=== PATIENT | female | born 1960 | race Hispanic/Latino ===

== ENCOUNTER 2020-10-05 18:25 | Observation (INO) | payer MEDICARE ==
[2020-10-05 19:58] LABS: Basophils # (Auto) 0.1 K/mm3 (0.0-0.1); Basophils % (Auto) 0.7 % (0.0-1.8); Eosinophils # (Auto) 0.2 K/mm3 (0.0-0.4); Eosinophils % (Auto) 3.1 % (0.0-4.3); Lymphocytes # (Auto) 1.2 K/mm3 (1.2-5.4); Mean Corpuscular HGB Conc 30 % (30-34); Mean Corpuscular Volume 75 fl (79-97); Monocytes # (Auto) 0.5 K/mm3 (0.0-0.8); Monocytes % (Auto) 6.4 % (0.0-7.3); Platelet Count 352 K/mm3 (140-440); Red Blood Count 4.52 M/mm3 (3.65-5.03)
[2020-10-05 20:00] LABS: Hemoglobin 10.3 gm/dl (10.1-14.3); Red Cell Distribution Width 24.4 % (13.2-15.2)
[2020-10-05 20:21] LABS: Alanine Aminotransferase 24 units/L (7-56); BUN/Creatinine Ratio 6; Blood Urea Nitrogen 3 mg/dL (7-17); Calcium 8.3 mg/dL (8.4-10.2); Hemolysis Index 2
[2020-10-05] MEDS ORDERED: SODIUM CHLORIDE 0.9% 1000 ML 1,000 ML IV ONE (22:17)
[2020-10-05] MEDS ORDERED: DICYCLOMINE 20 MG/2 ML INJ IM ONE (22:18)
[2020-10-05] MEDS ORDERED: ONDANSETRON 4 MG/2 ML INJ IV ONE (22:19)
--- NOTE | 2020-10-05 22:32 | Emergency Department Report ---
ED N/V/D HPI - General Chief complaint: GI Bleed Stated complaint: BLEEDING Time Seen by Provider: 10/05/20 20:51 Source: patient Mode of arrival: Ambulatory Limitations: No Limitations - History of Present Illness Initial comments: 60-year-old female presents to ED with diarrhea and rectal bleeding. Patient states she has had diarrhea, off and on, since her colonoscopy 2 months ago. Patient reports she had a baseball sized polyp removed. Colonoscopy was performed at [facility]. Patient states she has been taking Imodium and Pepto-Bismol for the diarrhea. Patient states she cycles in between loose watery stools and formed stools. Patient states no stool today, although yesterday she had watery stools. She reports that she has been seeing bright red blood on the toilet paper x1 week, off and on, when she wipes. Patient states her stool has been dark in color, but states she was told that she should expect this because her physician started her on iron pills 1 week ago. Patient denies any nausea or vomiting. She reports some left lower quadrant abdominal pain. MD complaint: diarrhea, abdominal pain Description of Diarrhea: water, blood-streaked Associated Abdominal Pain: Yes Location: LLQ Severity: moderate Quality: cramping Consistency: intermittent Improves with: none Worsens with: none Context: recent surgery/procedure Associated Symptoms: denies: fever/chills, nausea/vomiting - Related Data Home Medications Medication Instructions Recorded Confirmed Last Taken Ferrous Sulfate [Iron 325 MG] 65 mg PO QDAY 10/05/20 10/05/20 Unknown Gabapentin 900 mg PO TID 10/05/20 10/05/20 Unknown Glimepiride [Amaryl] 2 mg PO QDAY 10/05/20 10/05/20 Unknown Loratadine 10 mg PO QDAY 10/05/20 10/05/20 Unknown Allergies Allergy/AdvReac Type Severity Reaction Status Date / Time No Known Allergies Allergy Verified 11/15/15 20:29 ED Review of Systems ROS: Stated complaint: BLEEDING Other details as noted in HPI Comment: All other systems reviewed and negative Constitutional: denies: fever Gastrointestinal: abdominal pain, diarrhea, hematochezia. denies: nausea, vomiting ED Past Medical Hx - Past Medical History Previous Medical History?: Yes Hx Hypertension: Yes Hx Diabetes: Yes Additional medical history: PN, high chol , arthritis - Surgical History Additional Surgical History: hyst, tubal ligation, mass removed from breast, - Social History Smoking Status: Current Every Day Smoker Substance Use Type: Alcohol - Medications Home Medications: Home Medications Medication Instructions Recorded Confirmed Last Taken Type Ferrous Sulfate [Iron 325 MG] 65 mg PO QDAY 10/05/20 10/05/20 Unknown History Gabapentin 900 mg PO TID 10/05/20 10/05/20 Unknown History Glimepiride [Amaryl] 2 mg PO QDAY 10/05/20 10/05/20 Unknown History Loratadine 10 mg PO QDAY 10/05/20 10/05/20 Unknown History ED Physical Exam - General Limitations: No Limitations General appearance: alert, in no apparent distress - Head Head exam: Present: atraumatic, normocephalic - Eye Eye exam: Present: normal appearance - ENT ENT exam: Present: mucous membranes moist - Neck Neck exam: Present: normal inspection - Respiratory Respiratory exam: Present: normal lung sounds bilaterally. Absent: respiratory distress - Cardiovascular Cardiovascular Exam: Present: normal rhythm, tachycardia - GI/Abdominal GI/Abdominal exam: Present: soft, tenderness (LLQ). Absent: distended - Rectal Rectal exam: Present: heme (+) stool, black stool - External exam: Present: other (Skin surrounding anus appears macerated and excoriated) - Extremities Exam Extremities exam: Present: normal inspection - Neurological Exam Neurological exam: Present: alert, oriented X3 - Psychiatric Psychiatric exam: Present: normal affect, normal mood - Skin Skin exam: Present: warm, dry, intact, normal color ED Course Vital Signs 10/05/20 10/05/20 10/05/20 19:33 21:04 21:09 Temperature 98.0 F Pulse Rate 116 H 119 H Respiratory 16 23 18 Rate Blood Pressure 105/76 O2 Sat by Pulse 95 Oximetry 10/05/20 10/05/20 10/05/20 21:15 21:31 21:45 Temperature Pulse Rate 119 H 112 H 116 H Respiratory 20 25 H 21 Rate Blood Pressure 114/70 113/78 101/86 O2 Sat by Pulse 99 95 98 Oximetry 10/05/20 10/05/20 10/05/20 22:01 22:30 22:32 Temperature Pulse Rate 126 H 121 H 124 H Respiratory 24 18 21 Rate Blood Pressure 110/75 114/84 O2 Sat by Pulse 97 98 96 Oximetry 10/05/20 10/05/20 10/05/20 23:11 23:29 23:31 Temperature Pulse Rate 116 H Respiratory 31 H Rate Blood Pressure 114/84 109/66 109/66 O2 Sat by Pulse 96 95 96 Oximetry 10/06/20 10/06/20 00:01 00:31 Temperature Pulse Rate 113 H 111 H Respiratory 21 25 H Rate Blood Pressure 120/70 119/71 O2 Sat by Pulse 95 82 L Oximetry - Consultations Consultation #1: 10/06/20 01:13 GI unable to scope on weekends here at [facility]. Spoke w. GI at [place], Dr Bolivar. Does not feel pt needs to be transferred since Hb 10 and not actively bleeding. States likely won't need emergent scope. Believes tachycardia due to her diarrhea. Spoke w/ Dr Ashton, GI here at [facility]. Recommends trending hemoglobin, tachycardia may be due to diarrhea than bleeding. If patient does begin to have any acute bleeding, recommends CTA as the next step. Also recommends trending hemoglobin. ED Medical Decision Making - Lab Data Result diagrams: 10/05/20 19:47 10/05/20 19:47 - Radiology Data Radiology results: report reviewed, image reviewed - Medical Decision Making 61-year-old female presents to ED with bright red blood per rectum seen on toilet paper while wiping. Patient reports intermittent bright red blood over the last week. Patient also reports diarrhea x2 months since her colonoscopy in July 2020. Patient reported some left lower quadrant pain, so CT abdomen pelvis was done. CT is concerning for possible left ovarian mass, however no GI pathology is seen. Patient is tachycardic, however hemoglobin is normal at 10. Tachycardia likely due to dehydration secondary to her diarrhea. Patient reports dark stool x1 week, however, she recently started taking iron pills. On exam stool is dark in color and guaiac positive. Tachycardia improving fluids. BP stable. Spoke with GI. Patient will likely not need emergent scoping. Patient has no active bleeding at this time. Will admit to hospitalist. If she does begin active bleeding, CTA is recommended. Critical care attestation.: If time is entered above; I have spent that time in minutes in the direct care of this critically ill patient, excluding procedure time. ED Disposition Clinical Impression: Ovarian mass, left, Diarrhea, Rectal bleeding Disposition: DC-09 OP ADMIT IP TO THIS HOSP Is pt being admited?: Yes Condition: Stable Referrals: PRIMARY CARE, [Primary Care Provider] - 3-5 Days Forms: Accompanied Note Time of Disposition: 02:01
[2020-10-05 23:01] LABS: INR 1.06 (0.87-1.13)
[2020-10-05 23:02] LABS: Partial Thromboplastin Time 34.9 Sec. (24.2-36.6)
--- NOTE | 2020-10-05 23:05 | Cat Scan Report ---
CT OF THE ABDOMEN AND PELVIS WITH INTRAVENOUS CONTRAST INDICATION / CLINICAL INFORMATION: LLQ pain. TECHNIQUE: The patient received 100 cc Omnipaque [address] scans at this location are performed using CT dose reduction for ALARA by means of automated exposure control. COMPARISON: None available. FINDINGS: ABDOMEN: There is moderate left pelvocaliectasis with moderately severe left ureterectasis. There is a mildly delayed left nephrogram. The right kidney is normal. There is moderately severe generalized decreased density of the liver parenchyma compared to the sple en without focal lesion. There is a probable tiny calcified stone in the gallbladder. The gallbladder is normal in size without wall thickening or bile duct dilatation. The pancreas, spleen, adrenal gla nds and bowel are normal. No adenopathy is present. There are moderate atherosclerotic calcifications involving aorta without aneurysm. The lung bases are clear. PELVIS: The left ureter is dilated to the level of a complex cystic mass in the left adnexa. The mass measures approximately 10 cm in greatest dimension and contains multiple internal septations. There is a small cystic mass in the right adnexa measuring 2.5 cm. The uterus is not seen. The distal left ureter is normal in caliber. The distal right ureter and urinary bladder are normal. There is a moderate hypogastric ventral hernia containing small bowel without acute complication. The re is no evidence of appendicitis or diverticulitis. A moderate compression fracture involving the L3 vertebral body and a mild compression fracture involving the L1 vertebral body are probably old. IMPRESSION: 1. 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 There is also a small cystic mass in the right adnexa. 2. Left-sided hydronephrosis is related to the cystic mass in the left adnexa. 3. Marked diffuse fatty infiltration of the liver. 4. Moderate hypogastric ventral hernia containing small bowel without acute complication. Signer Name: Garland Charles MD Signed: 10/05/2020 11:01 PM Workstation Name: [id number]
[2020-10-06] MEDS ORDERED: SODIUM CHLORIDE 0.9% 1000 ML 1,000 ML IV ONE (02:09)
[2020-10-06] MEDS ORDERED: DEXTROSE 50% IN WATER (25GM) 50 ML SYRINGE IV PRN (02:13)
[2020-10-06] MEDS ORDERED: ONDANSETRON 4 MG/2 ML INJ IV PRN (02:13)
[2020-10-06] MEDS ORDERED: ALBUTEROL 2.5 MG/3 ML NEBU IH PRN (02:47)
--- NOTE | 2020-10-06 02:52 | History and Physical Report ---
History of Present Illness Date of examination: 10/06/20 Date of admission: 10/06/2020 Chief complaint: bright red blood per rectum, intermittent diarrhea History of present illness: 60-year-old -[place] female with history of anemia, hypertension, diabetes, peripheral neuropathy, COPD, HLD, arthritis, and chronic debility who presents to [facility] ED with complaints of intermittent diarrhea x2 months, intermittent bright red blood per rectum x4 to 5 days. Patient reports intermittent since undergoing colonoscopy 2 months ago at [facility]. She has been taking OTC Imodium and Pepto-Bismol with minimal relief. Describes her stool as formed stools on some days, and loose watery stool on other days. Endorses history of anemia and was started on oral iron supplement approximately 1 week ago. Endorses dark-colored stool since starting iron supplement. However, she complains of bright red blood per rectum intermittently over the past 4 to 5 days. Patient states when she sits on the commode and goes to wipe there is bright red blood on the toilet tissue. Endorses chronic smoker's cough with clear/white sputum production, unintentional weight loss of 60 pounds over the past 6 months, and decreased oral intake and appetite. Additionally patient complains of left upper quadrant 6/10 cramping pain. The pain is intermittent, waxes and wanes, and she has not taken any medication for relief. Denies nausea, fever, chills, generalized weakness, headache, chest pain, palpitations, shortness of breath, PND, orthopnea, hematuria, or recent sick contacts Past History Past Medical History: arthritis, COPD, diabetes, hypertension, hyperlipidemia, other (Peripheral neuropathy, chronic debility, " tremors/shakes") Past Surgical History: hysterectomy, Other (tubal ligation, mass removed from breast) Social history: smoking (Smokes half a pack to a pack daily, social alcohol use), full code, other (Lives with life partner of 16 years). denies: alcohol abuse, prescription drug abuse, IV drug use Family history: hypertension Medications and Allergies Allergies Allergy/AdvReac Type Severity Reaction Status Date / Time No Known Allergies Allergy Verified 11/15/15 20:29 Home Medications Medication Instructions Recorded Confirmed Last Taken Type Ferrous Sulfate [Iron 325 MG] 65 mg PO QDAY 10/05/20 10/05/20 Unknown History Gabapentin 900 mg PO TID 10/05/20 10/05/20 Unknown History Glimepiride [Amaryl] 2 mg PO QDAY 10/05/20 10/05/20 Unknown History Loratadine 10 mg PO QDAY 10/05/20 10/05/20 Unknown History Active Meds: Active Medications Acetaminophen (Acetaminophen 325 Mg Tab) 650 mg PO Q4H PRN PRN Reason: Pain MILD(1-3)/Fever >100.5/RUCKER Dextrose (Dextrose 50% In Water (25gm) 50 Ml Syringe) 0 ml IV Q30MIN PRN; Protocol PRN Reason: Hypoglycemia Sodium Chloride (Nacl 0.9% 1000 Ml) 1,000 mls @ 999 mls/hr IV BOLUS ONE Stop: 10/06/20 03:09 Dextrose/Sodium Chloride (D5/0.45ns) 1,000 mls @ 100 mls/hr IV DIRECT MIRIAM Insulin Human Lispro (Insulin Lispro 100 Unit/Ml) 0 unit SUB-Q ACHS MIRIAM; Protocol Ondansetron HCl (Ondansetron 4 Mg/2 Ml Inj) 4 mg IV Q6H PRN PRN Reason: Nausea And Vomiting Oxycodone/Acetaminophen (Oxycodone /Acetaminophen 5-325mg Tab) 1 tab PO Q6H PRN PRN Reason: Pain, Moderate (4-6) Pantoprazole Sodium (Pantoprazole 40 Mg Inj) 40 mg IV BID MIRIAM Sodium Chloride (Sodium Chloride 0.9% 10 Ml Flush Syringe) 10 ml IV BID MIRIAM Sodium Chloride (Sodium Chloride 0.9% 10 Ml Flush Syringe) 10 ml IV PRN PRN PRN Reason: LINE FLUSH Review of Systems All systems: negative (As noted in HPI) Exam - Physical Exam Narrative exam: Physical exam General appearance: Present: No acute distress, alert and oriented 3, adult female - EENT Eyes: Present: PERRL, EOM intact ENT: hearing intact, missing tubes - Neck Neck: Present: supple, normal ROM - Respiratory Respiratory effort: Non-labored Respiratory: Faint scattered crackles, diminished bases - Cardiovascular Heart rate: 119 (bpm) Rhythm: Sinus tachycardia Heart Sounds: Present: S1 & S2. Absent: rub, click - Extremities Extremities: no ischemia, pulses intact, - Peripheral Assessment Peripheral Pulses: within normal limits - Abdominal General gastrointestinal: soft, tenderness to the left lower quadrant, normal bowel sounds - Integumentary Integumentary: Present: warm, dry - Musculoskeletal Musculoskeletal: Able to move all extremities, chronic bilateral lower extremity weakness ambulates with cane at baseline -Neurological Neurological: CN II-XII intact - Psychiatric Psychiatric: cooperative - Constitutional Vitals: Temp Pulse Resp BP Pulse Ox 98.0 F 111 H 25 H 119/71 82 L 10/05/20 19:33 10/06/20 00:31 10/06/20 00:31 10/06/20 00:31 10/06/20 00:31 Results - Labs CBC & Chem 7: 10/05/20 19:47 10/05/20 19:47 Labs: Laboratory Last Values WBC 7.8 K/mm3 (4.5-11.0) 10/05/20 19:47 RBC 4.52 M/mm3 (3.65-5.03) 10/05/20 19:47 Hgb 10.3 gm/dl (10.1-14.3) 10/05/20 19:47 Hct 34.0 % (30.3-42.9) 10/05/20 19:47 MCV 75 fl (79-97) L 10/05/20 19:47 MCH 23 pg (28-32) L 10/05/20 19:47 MCHC 30 % (30-34) 10/05/20 19:47 RDW 24.4 % (13.2-15.2) H 10/05/20 19:47 Plt Count 352 K/mm3 (140-440) 10/05/20 19:47 Lymph % (Auto) 16.0 % (13.4-35.0) 10/05/20 19:47 [place] % (Auto) 6.4 % (0.0-7.3) 10/05/20 19:47 Eos % (Auto) 3.1 % (0.0-4.3) 10/05/20 19:47 Baso % (Auto) 0.7 % (0.0-1.8) 10/05/20 19:47 Lymph # (Auto) 1.2 K/mm3 (1.2-5.4) 10/05/20 19:47 [place] # (Auto) 0.5 K/mm3 (0.0-0.8) 10/05/20 19:47 Eos # (Auto) 0.2 K/mm3 (0.0-0.4) 10/05/20 19:47 Baso # (Auto) 0.1 K/mm3 (0.0-0.1) 10/05/20 19:47 Seg Neutrophils % 73.8 % (40.0-70.0) H 10/05/20 19:47 Seg Neutrophils # 5.7 K/mm3 (1.8-7.7) 10/05/20 19:47 PT 13.7 Sec. (12.2-14.9) 10/05/20 22:27 INR 1.06 (0.87-1.13) 10/05/20 22:27 APTT 34.9 Sec. (24.2-36.6) 10/05/20 22:27 Sodium 133 mmol/L (137-145) L 10/05/20 19:47 Potassium 4.0 mmol/L (3.6-5.0) 10/05/20 19:47 Chloride 94.9 mmol/L (98-107) L 10/05/20 19:47 Carbon Dioxide 23 mmol/L (22-30) 10/05/20 19:47 Anion Gap 19 mmol/L 10/05/20 19:47 BUN 3 mg/dL (7-17) L 10/05/20 19:47 Creatinine 0.5 mg/dL (0.6-1.2) L 10/05/20 19:47 Estimated GFR > 60 ml/min 10/05/20 19:47 BUN/Creatinine Ratio 6 % 10/05/20 19:47 Glucose 77 mg/dL (65-100) 10/05/20 19:47 Hemoglobin A1c 5.0 % (4-6) 10/06/20 Unknown Calcium 8.3 mg/dL (8.4-10.2) L 10/05/20 19:47 Total Bilirubin 0.30 mg/dL (0.1-1.2) 10/05/20 19:47 AST 59 units/L (5-40) H 10/05/20 19:47 ALT 24 units/L (7-56) 10/05/20 19:47 Alkaline Phosphatase 176 units/L (35-129) H 10/05/20 19:47 Total Protein 7.6 g/dL (6.3-8.2) 10/05/20 19:47 Albumin 3.0 g/dL (3.9-5) L 10/05/20 19:47 Albumin/Globulin Ratio 0.7 % 10/05/20 19:47 - Diagnostic Impressions Diagnostic Impressions: CT Abd/Pelvis: FINDINGS: ABDOMEN: There is moderate left pelvocaliectasis with moderately severe left ureterectasis. There is a mildly delayed left nephrogram. The right kidney is normal. There is moderately severe generalized decreased density of the liver parenchyma compared to the spleen without focal lesion. There is a probable tiny calcified stone in the gallbladder. The gallbladder is normal in size without wall thickening or bile duct dilatation. The pancreas, spleen, adrenal glands and bowel are normal. No adenopathy is present. There are modera te atherosclerotic calcifications involving aorta without aneurysm. The lung bases are clear. PELVIS: The left ureter is dilated to the level of a complex cystic mass in the left adnexa. The mass measures approximately 10 cm in greatest dimension and contains multiple internal septations. There is a small cystic mass in the right adnexa measuring 2.5 cm. The uterus is not seen. The distal left ureter is normal in caliber. The distal right ureter and urinary bladder are normal. There is a moderate hypogastric ventral hernia containing small bowel without acute complication. There is no evidence of appendicitis or diverticulitis. A moderate compression fracture involving the L3 vertebral body and a mild compression fracture involving the L1 vertebral body are probably old. IMPRESSION: 1. 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 There is also a small cystic mass in the right adnexa. 2. Left-sided hydronephrosis is related to the cystic mass in the left adnexa. 3. Marked diffuse fatty infiltration of the liver. 4. Moderate hypogastric ventr al hernia containing small bowel without acute complication. Assessment and Plan Assessment and plan: Tachycardia -Likely due to dehydration -On continuous remote telemetry monitoring -Receiving IVF -Monitor, if no improvement after fluid resuscitation may consider cardiology consult GI bleed -Complains of intermittent bright red blood per rectum x4 to 5 days -Guaiac positive -On IV Protonix 40 mg twice daily -Unable to scope over the weekend, GI consulted, recs appreciated Dehydration -BUN/creatinine 3/0.5 -Likely due to poor oral intake -Gentle hydration with IVF -Monitor -Encourage oral intake Hyponatremia -Na on admission 133 -Slowly correct Na with IVF -Continue to monitor replete prn Anemia -Acute on chronic -High suspicion for GI bleed, stool guaiac positive -On oral iron supplements at home, will continue -Trend H&H -Transfuse for Hgb less than 7 or significant blood loss per rectum Malnutrition -Severe -Albumin 3.0 -Endorses unintentional 60 pound weight loss over the past 6 months, and decreased appetite -Dietitian consult pending Cystic mass -10 cm complex cystic mass in the left adnexa is characteristic of ovarian neoplasm; also a small cystic mass in the right adnexa -Incidental finding seen on CT abdomen pelvis -We will try outpatient follow-up with CREDIT COLLECTIONS CLERK and possibly oncology DM -POC BG monitoring -SSI coverage prn -HgbA1C pending Tobacco abuse -Current every day smoker -Reports smoking half a pack to 1 pack/day -Counseled for cessation -Nicotine patch when necessary -Patient's smoking history and age may benefit from outpatient follow-up with pulmonary for low-density lung scan DVand GI PPX -Hold all anticoagulation due to high suspicion of active bleeding -On IV Protonix twice daily Advance Directives: No VTE prophylaxis?: Mechanical Reason for no VTE Prophylaxis: Bleeding Plan of care discussed with patient/family: Yes
[2020-10-06] MEDS ORDERED: NICOTINE 14 MG/24 HR PATCH TD ONE (03:07)
[2020-10-06 03:15] LABS: Chol/HDL Ratio 4.08 %
[2020-10-06] MEDS: guaiFENesin ER 600 MG TAB PO SCH ×3 (03:58→21:12)
[2020-10-06] MEDS: D5W/0.45% NACL 1,000 ML IV SCH ×2 (04:47→20:04)
[2020-10-06 06:39] LABS: Hematocrit 31.6 % (30.3-42.9); Hemoglobin 9.2 gm/dl (10.1-14.3)
--- NOTE | 2020-10-06 09:06 | Progress Note ---
Assessment and Plan Assessment and plan: GI bleed Hyponatremia Acute blood loss anemia Severe protein calorie malnutrition Ovarian cystic mass Diabetes mellitus type 2 Tobacco abuse 10/06. Continue IV fluid hydration and follow-up BMP. Transfuse for hemoglobin less than 7. Follow-up CBC. Continue IV Protonix twice daily. Await GI co nsultation. History Interval history: No new issues overnight Hospitalist Physical - Constitutional Vitals: Temp Pulse Resp BP Pulse Ox 98.4 F 91 H 18 102/69 96 10/06/20 08:09 10/06/20 08:09 10/06/20 04:21 10/06/20 08:10 10/06/20 07:37 General appearance: Present: no acute distress, well-nourished - EENT Eyes: Present: PERRL, EOM intact ENT: hearing intact, clear oral mucosa, dentition normal - Neck Neck: Present: supple, normal ROM - Respiratory Respiratory effort: normal Respiratory: bilateral: CTA - Cardiovascular Rhythm: regular Heart Sounds: Present: S1 & S2. Absent: gallop, rub - Extremities Extremities: no ischemia, No edema, Full ROM - Abdominal General gastrointestinal: soft, non-tender, non-distended, normal bowel sounds - Integumentary Integumentary: Present: clear, warm, dry - Neurologic Neurologic: CNII-XII intact, moves all extremities Results - Labs CBC & Chem 7: 10/06/20 05:32 10/05/20 19:47 Labs: Laboratory Last Values WBC 7.8 K/mm3 (4.5-11.0) 10/05/20 19:47 RBC 4.52 M/mm3 (3.65-5.03) 10/05/20 19:47 Hgb 9.2 gm/dl (10.1-14.3) L 10/06/20 05:32 Hct 31.6 % (30.3-42.9) 10/06/20 05:32 MCV 75 fl (79-97) L 10/05/20 19:47 MCH 23 pg (28-32) L 10/05/20 19:47 MCHC 30 % (30-34) 10/05/20 19:47 RDW 24.4 % (13.2-15.2) H 10/05/20 19:47 Plt Count 352 K/mm3 (140-440) 10/05/20 19:47 Lymph % (Auto) 16.0 % (13.4-35.0) 10/05/20 19:47 [place] % (Auto) 6.4 % (0.0-7.3) 10/05/20 19:47 Eos % (Auto) 3.1 % (0.0-4.3) 10/05/20 19:47 Baso % (Auto) 0.7 % (0.0-1.8) 10/05/20 19:47 Lymph # (Auto) 1.2 K/mm3 (1.2-5.4) 10/05/20 19:47 [place] # (Auto) 0.5 K/mm3 (0.0-0.8) 10/05/20 19:47 Eos # (Auto) 0.2 K/mm3 (0.0-0.4) 10/05/20 19:47 Baso # (Auto) 0.1 K/mm3 (0.0-0.1) 10/05/20 19:47 Seg Neutrophils % 73.8 % (40.0-70.0) H 10/05/20 19:47 Seg Neutrophils # 5.7 K/mm3 (1.8-7.7) 10/05/20 19:47 PT 13.7 Sec. (12.2-14.9) 10/05/20 22:27 INR 1.06 (0.87-1.13) 10/05/20 22:27 APTT 34.9 Sec. (24.2-36.6) 10/05/20 22:27 Sodium 133 mmol/L (137-145) L 10/05/20 19:47 Potassium 4.0 mmol/L (3.6-5.0) 10/05/20 19:47 Chloride 94.9 mmol/L (98-107) L 10/05/20 19:47 Carbon Dioxide 23 mmol/L (22-30) 10/05/20 19:47 Anion Gap 19 mmol/L 10/05/20 19:47 BUN 3 mg/dL (7-17) L 10/05/20 19:47 Creatinine 0.5 mg/dL (0.6-1.2) L 10/05/20 19:47 Estimated GFR > 60 ml/min 10/05/20 19:47 BUN/Creatinine Ratio 6 % 10/05/20 19:47 Glucose 77 mg/dL (65-100) 10/05/20 19:47 Hemoglobin A1c 5.0 % (4-6) 10/06/20 Unknown Calcium 8.3 mg/dL (8.4-10.2) L 10/05/20 19:47 Total Bilirubin 0.30 mg/dL (0.1-1.2) 10/05/20 19:47 AST 59 units/L (5-40) H 10/05/20 19:47 ALT 24 units/L (7-56) 10/05/20 19:47 Alkaline Phosphatase 176 units/L (35-129) H 10/05/20 19:47 Total Protein 7.6 g/dL (6.3-8.2) 10/05/20 19:47 Albumin 3.0 g/dL (3.9-5) L 10/05/20 19:47 Albumin/Globulin Ratio 0.7 % 10/05/20 19:47 Triglycerides 215 mg/dL (2-149) H 10/06/20 Unknown Cholesterol 192 mg/dL (50-199) 10/06/20 Unknown LDL Cholesterol Direct 130 mg/dL (50-130) 10/06/20 Unknown HDL Cholesterol 47 mg/dL (40-59) 10/06/20 Unknown Cholesterol/HDL Ratio 4.08 % 10/06/20 Unknown Sal/IV: Voiding Method Bedside Commode Active Medications - Current Medications Current Medications: Generic Name Dose Route Start Last Admin Trade Name Freq PRN Reason Stop Dose Admin Acetaminophen 650 mg 10/06/20 02:13 Acetaminophen 325 Mg Tab PO Q4H PRN Pain MILD(1-3)/Fever >100.5/RUCKER Albuterol 2.5 mg 10/06/20 02:47 Albuterol 2.5 Mg/3 Ml Nebu IH Q4HRT PRN Shortness Of Breath/ cough Dextrose 0 ml 10/06/20 02:13 Dextrose 50% In Water (25gm) 50 Ml Syringe IV Q30MIN PRN Hypoglycemia Protocol Ferrous Sulfate 325 mg 10/06/20 10:00 Ferrous Sulfate 325 Mg Tab PO QDAY MIRIAM Gabapentin 900 mg 10/06/20 08:00 Gabapentin 300 Mg Cap PO TID [facility] Guaifenesin 600 mg 10/06/20 03:02 10/06/20 03:58 Guaifenesin Er 600 Mg Tab PO 600 mg BID MIRIAM Administration Dextrose/Sodium Chloride 1,000 mls @ 100 mls/hr 10/06/20 03:00 10/06/20 04:47 D5/0.45ns IV 100 mls/hr DIRECT MIRIAM Administration Insulin Human Lispro 0 unit 10/06/20 07:30 Insulin Lispro 100 Unit/Ml SUB-Q ACHS MIRIAM Protocol Nicotine 14 mg 10/06/20 10:00 Nicotine 14 Mg/24 Hr Patch TD QDAY MIRIAM Ondansetron HCl 4 mg 10/06/20 02:13 Ondansetron 4 Mg/2 Ml Inj IV Q6H PRN Nausea And Vomiting Oxycodone/Acetaminophen 1 tab 10/06/20 02:13 Oxycodone /Acetaminophen 5-325mg Tab PO Q6H PRN Pain, Moderate (4-6) Pantoprazole Sodium 40 mg 10/06/20 10:00 Pantoprazole 40 Mg Inj IV BID MIRIAM Sodium Chloride 10 ml 10/06/20 10:00 Sodium Chloride 0.9% 10 Ml Flush Syringe IV BID MIRIAM Sodium Chloride 10 ml 10/06/20 02:13 Sodium Chloride 0.9% 10 Ml Flush Syringe IV PRN PRN LINE FLUSH
[2020-10-06] MEDS: FERROUS SULFATE 325 MG TAB PO SCH (10:26)
[2020-10-06] MEDS: GABAPENTIN 300 MG CAP PO SCH ×3 (10:26→21:12)
[2020-10-06] MEDS: INSULIN LISPRO 100 UNIT/ML SUB-Q SCH ×4 (10:27→21:13)
[2020-10-06] MEDS: NICOTINE 14 MG/24 HR PATCH TD SCH (10:27)
[2020-10-06] MEDS: PANTOPRAZOLE 40 MG INJ IV SCH ×2 (10:27→21:11)
[2020-10-06] MEDS: ACETAMINOPHEN 325 MG TAB PO PRN ×3 (10:31→21:12)
[2020-10-06 14:37] LABS: Hematocrit 29.5 % (30.3-42.9); Hemoglobin 9.1 gm/dl (10.1-14.3)
--- NOTE | 2020-10-06 15:29 | Gastroenterology Consultation ---
History of Present Illness - Reason for Consult Consult date: 10/06/20 hematochezia Requesting physician: ROMANA SOSA - History of Present Illness The patient is a 60 yo aaf who presents with abd pain, diarrhea, and hematochezia. Patient reports having colonoscopy 2 months ago at [facility] with large polyp removed. Since that time, she has had on going diarrhea episodes alternating with hard stools/constipation and has noticed scant hematochezia particularly with straining. + abd pain, llq for several weeks. pt distressed about having another loose bm at the time of exam and difficult to obtain detailed history from patient. non-bloody bm's per pt's nurse. had some scant blood with wipes. ct scan on admission shows 10 cm complex cystic mass in left adenexa concerning for ovarian neoplasm. Past History Past Medical History: arthritis, COPD, diabetes, hypertension, hyperlipidemia, other (Peripheral neuropathy, chronic debility, " tremors/shakes") Past Surgical History: hysterectomy, Other (tubal ligation, mass removed from breast) Social history: smoking (Smokes half a pack to a pack daily, social alcohol use), full code, other (Lives with life partner of 16 years). denies: alcohol abuse, prescription drug abuse, IV drug use Family history: hypertension Medications and Allergies Allergies Allergy/AdvReac Type Severity Reaction Status Date / Time No Known Allergies Allergy Verified 11/15/15 20:29 Home Medications Medication Instructions Recorded Confirmed Last Taken Type Ferrous Sulfate [Iron 325 MG] 65 mg PO QDAY 10/05/20 10/05/20 Unknown History Gabapentin 900 mg PO TID 10/05/20 10/05/20 Unknown History Glimepiride [Amaryl] 2 mg PO QDAY 10/05/20 10/05/20 Unknown History Loratadine 10 mg PO QDAY 10/05/20 10/05/20 Unknown History Active Meds: Active Medications Acetaminophen (Acetaminophen 325 Mg Tab) 650 mg PO Q4H PRN PRN Reason: Pain MILD(1-3)/Fever >100.5/RUCKER Last Admin: 10/06/20 14:23 Dose: 650 mg Documented by: Albuterol (Albuterol 2.5 Mg/3 Ml Nebu) 2.5 mg IH Q4HRT PRN PRN Reason: Shortness Of Breath/ cough Dextrose (Dextrose 50% In Water (25gm) 50 Ml Syringe) 0 ml IV Q30MIN PRN; Protocol PRN Reason: Hypoglycemia Ferrous Sulfate (Ferrous Sulfate 325 Mg Tab) 325 mg PO QDAY [facility] Last Admin: 10/06/20 10:26 Dose: 325 mg Documented by: Gabapentin (Gabapentin 300 Mg Cap) 900 mg PO TID [facility] Last Admin: 10/06/20 14:21 Dose: 900 mg Documented by: Guaifenesin (Guaifenesin Er 600 Mg Tab) 600 mg PO BID [facility] Last Admin: 10/06/20 10:26 Dose: 600 mg Documented by: Dextrose/Sodium Chloride (D5/0.45ns) 1,000 mls @ 100 mls/hr IV DIRECT [facility] Last Admin: 10/06/20 04:47 Dose: 100 mls/hr Documented by: Insulin Human Lispro (Insulin Lispro 100 Unit/Ml) 0 unit SUB-Q ACHS [facility]; Protocol Last Admin: 10/06/20 11:16 Dose: Not Given Documented by: Nicotine (Nicotine 14 Mg/24 Hr Patch) 14 mg TD QDAY [facility] Last Admin: 10/06/20 10:27 Dose: 14 mg Documented by: Ondansetron HCl (Ondansetron 4 Mg/2 Ml Inj) 4 mg IV Q6H PRN PRN Reason: Nausea And Vomiting Oxycodone/Acetaminophen (Oxycodone /Acetaminophen 5-325mg Tab) 1 tab PO Q6H PRN PRN Reason: Pain, Moderate (4-6) Pantoprazole Sodium (Pantoprazole 40 Mg Inj) 40 mg IV BID [facility] Last Admin: 10/06/20 10:27 Dose: 40 mg Documented by: Sodium Chloride (Sodium Chloride 0.9% 10 Ml Flush Syringe) 10 ml IV BID [facility] Last Admin: 10/06/20 10:27 Dose: 10 ml Documented by: Sodium Chloride (Sodium Chloride 0.9% 10 Ml Flush Syringe) 10 ml IV PRN PRN PRN Reason: LINE FLUSH Reviewed/updated patients home and current medications Review of Systems - Review of Systems All systems: negative (per HPI, poor po intake with episodes of n/v, weight loss) Exam - Constitutional Vital Signs: Temp Pulse Resp BP Pulse Ox 98.4 F 95 H 18 102/69 96 10/06/20 08:09 10/06/20 11:00 10/06/20 04:21 10/06/20 08:10 10/06/20 07:37 General appearance: mild distress - EENT Eyes: PERRL, EOM intact - Respiratory Respiratory effort: normal Respiratory: bilateral: CTA - Cardiovascular Rhythm: regular Heart Sounds: Present: S1 & S2 - Gastrointestinal General gastrointestinal: Present: soft, tender (llq), non-distended - Neurologic Neurological: alert and oriented x3 - Labs CBC & Chem 7: 10/06/20 14:22 10/05/20 19:47 Lab Results: Laboratory Results - last 24 hr 10/05/20 10/05/20 10/05/20 19:47 19:47 22:27 WBC 7.8 RBC 4.52 Hgb 10.3 Hct 34.0 MCV 75 L MCH 23 L MCHC 30 RDW 24.4 H Plt Count 352 Lymph % (Auto) 16.0 [place] % (Auto) 6.4 Eos % (Auto) 3.1 Baso % (Auto) 0.7 Lymph # (Auto) 1.2 [place] # (Auto) 0.5 Eos # (Auto) 0.2 Baso # (Auto) 0.1 Seg Neutrophils % 73.8 H Seg Neutrophils # 5.7 PT 13.7 INR 1.06 APTT 34.9 Sodium 133 L Potassium 4.0 Chloride 94.9 L Carbon Dioxide 23 Anion Gap 19 BUN 3 L Creatinine 0.5 L Estimated GFR > 60 BUN/Creatinine Ratio 6 Glucose 77 POC Glucose Hemoglobin A1c Calcium 8.3 L Total Bilirubin 0.30 AST 59 H ALT 24 Alkaline Phosphatase 176 H Total Protein 7.6 Albumin 3.0 L Albumin/Globulin Ratio 0.7 Triglycerides Cholesterol LDL Cholesterol Direct HDL Cholesterol Cholesterol/HDL Ratio 10/06/20 10/06/20 10/06/20 05:32 07:41 11:11 WBC RBC Hgb 9.2 L Hct 31.6 MCV MCH MCHC RDW Plt Count Lymph % (Auto) [place] % (Auto) Eos % (Auto) Baso % (Auto) Lymph # (Auto) [place] # (Auto) Eos # (Auto) Baso # (Auto) Seg Neutrophils % Seg Neutrophils # PT INR APTT Sodium Potassium Chloride Carbon Dioxide Anion Gap BUN Creatinine Estimated GFR BUN/Creatinine Ratio Glucose POC Glucose 67 L 92 Hemoglobin A1c Calcium Total Bilirubin AST ALT Alkaline Phosphatase Total Protein Albumin Albumin/Globulin Ratio Triglycerides Cholesterol LDL Cholesterol Direct HDL Cholesterol Cholesterol/HDL Ratio 10/06/20 10/06/20 10/06/20 14:22 Unknown Unknown WBC RBC Hgb 9.1 L Hct 29.5 L MCV MCH MCHC RDW Plt Count Lymph % (Auto) [place] % (Auto) Eos % (Auto) Baso % (Auto) Lymph # (Auto) [place] # (Auto) Eos # (Auto) Baso # (Auto) Seg Neutrophils % Seg Neutrophils # PT INR APTT Sodium Potassium Chloride Carbon Dioxide Anion Gap BUN Creatinine Estimated GFR BUN/Creatinine Ratio Glucose POC Glucose Hemoglobin A1c 5.0 Calcium Total Bilirubin AST ALT Alkaline Phosphatase Total Protein Albumin Albumin/Globulin Ratio Triglycerides 215 H Cholesterol 192 LDL Cholesterol Direct 130 HDL Cholesterol 47 Cholesterol/HDL Ratio 4.08 - Imaging CT Scan: report reviewed Assessment and Plan 1. hematochezia - intermittent episodes since colonoscopy per pt, particularly with straining suggestive of ano-rectal/outlet source. H/h stable and no bloody diarrhea since admission. reports recent colonoscopy at [facility] with large polyp removed but unable to provide further details regarding this or other findings from colonoscopy. will manage conservatively from gi stand point 2. Diarrhea - since colonoscopy per pt. multiple episodes today. r/o c diff 3. LLQ abd pain - ct with left adnexa mass concerning for ovarian neoplasm. recommend employment adjudicator consult
[2020-10-06 22:47] LABS: Hematocrit 29.4 % (30.3-42.9); Hemoglobin 8.9 gm/dl (10.1-14.3)
[2020-10-07] MEDS ORDERED: diphenhydrAMINE 50 MG/ML VIAL IV PRN (01:48)
[2020-10-07] MEDS: D5W/0.45% NACL 1,000 ML IV SCH ×2 (04:33→17:22)
[2020-10-07 04:51] LABS: Basophils % (Auto) 0.4 % (0.0-1.8); Eosinophils # (Auto) 0.2 K/mm3 (0.0-0.4); Lymphocytes # (Auto) 1.4 K/mm3 (1.2-5.4); Lymphocytes % (Auto) 15.8 % (13.4-35.0); Mean Corpuscular HGB Conc 29 % (30-34); Mean Corpuscular Volume 77 fl (79-97); Monocytes # (Auto) 0.8 K/mm3 (0.0-0.8); Monocytes % (Auto) 9.5 % (0.0-7.3); Platelet Count 278 K/mm3 (140-440); Red Blood Count 3.81 M/mm3 (3.65-5.03)
[2020-10-07 05:01] LABS: Hematocrit 29.5 % (30.3-42.9); Hemoglobin 8.5 gm/dl (10.1-14.3); Red Cell Distribution Width 24.3 % (13.2-15.2)
[2020-10-07 05:05] LABS: BUN/Creatinine Ratio 12; Blood Urea Nitrogen 7 mg/dL (7-17); Calcium 8.3 mg/dL (8.4-10.2); Hemolysis Index 6
[2020-10-07] MEDS ORDERED: HYDROCORTISONE 2.5% Topical CREAM 20 GM TP PRN (05:17)
--- NOTE | 2020-10-07 08:38 | Progress Note ---
Assessment and Plan Assessment and plan: GI bleed Hyponatremia Acute blood loss anemia Severe protein calorie malnutrition Ovarian cystic mass Diabetes mellitus type 2 Tobacco abuse 10/06. Continue IV fluid hydration and follow-up BMP. Transfuse for hemoglobin less than 7. Follow-up CBC. Continue IV Protonix twice daily. Await GI co nsultation. 10/07. GI plans to treat conservatively. Check C. Diff for evaluation of diarrhea. H&H is stable. Transfuse for hemoglobin less than 7. Continue Protonix. EXPENSE ANALYST consult for ovarian mass. History Interval history: No new issues overnight Hospitalist Physical - Constitutional Vitals: Temp Pulse Resp BP Pulse Ox 98.2 F 87 16 101/54 94 10/07/20 03:53 10/07/20 03:53 10/07/20 03:53 10/07/20 03:53 10/07/20 03:53 General appearance: Present: no acute distress, well-nourished - EENT Eyes: Present: PERRL, EOM intact ENT: hearing intact, clear oral mucosa, dentition normal - Neck Neck: Present: supple, normal ROM - Respiratory Respiratory effort: normal Respiratory: bilateral: CTA - Cardiovascular Rhythm: regular Heart Sounds: Present: S1 & S2. Absent: gallop, rub - Extremities Extremities: no ischemia, No edema, Full ROM - Abdominal General gastrointestinal: soft, non-tender, non-distended, normal bowel sounds - Integumentary Integumentary: Present: clear, warm, dry - Neurologic Neurologic: CNII-XII intact, moves all extremities Results - Labs CBC & Chem 7: 10/07/20 03:58 10/07/20 03:58 Labs: Laboratory Last Values WBC 8.8 K/mm3 (4.5-11.0) 10/07/20 03:58 RBC 3.81 M/mm3 (3.65-5.03) 10/07/20 03:58 Hgb 8.5 gm/dl (10.1-14.3) L 10/07/20 03:58 Hct 29.5 % (30.3-42.9) L 10/07/20 03:58 MCV 77 fl (79-97) L 10/07/20 03:58 MCH 22 pg (28-32) L 10/07/20 03:58 MCHC 29 % (30-34) L 10/07/20 03:58 RDW 24.3 % (13.2-15.2) H 10/07/20 03:58 Plt Count 278 K/mm3 (140-440) 10/07/20 03:58 Lymph % (Auto) 15.8 % (13.4-35.0) 10/07/20 03:58 [place] % (Auto) 9.5 % (0.0-7.3) H 10/07/20 03:58 Eos % (Auto) 2.0 % (0.0-4.3) 10/07/20 03:58 Baso % (Auto) 0.4 % (0.0-1.8) 10/07/20 03:58 Lymph # (Auto) 1.4 K/mm3 (1.2-5.4) 10/07/20 03:58 [place] # (Auto) 0.8 K/mm3 (0.0-0.8) 10/07/20 03:58 Eos # (Auto) 0.2 K/mm3 (0.0-0.4) 10/07/20 03:58 Baso # (Auto) 0.0 K/mm3 (0.0-0.1) 10/07/20 03:58 Seg Neutrophils % 72.3 % (40.0-70.0) H 10/07/20 03:58 Seg Neutrophils # 6.4 K/mm3 (1.8-7.7) 10/07/20 03:58 PT 13.7 Sec. (12.2-14.9) 10/05/20 22:27 INR 1.06 (0.87-1.13) 10/05/20 22:27 APTT 34.9 Sec. (24.2-36.6) 10/05/20 22:27 Sodium 136 mmol/L (137-145) L 10/07/20 03:58 Potassium 3.8 mmol/L (3.6-5.0) 10/07/20 03:58 Chloride 96.4 mmol/L (98-107) L 10/07/20 03:58 Carbon Dioxide 27 mmol/L (22-30) 10/07/20 03:58 Anion Gap 16 mmol/L 10/07/20 03:58 BUN 7 mg/dL (7-17) 10/07/20 03:58 Creatinine 0.6 mg/dL (0.6-1.2) 10/07/20 03:58 Estimated GFR > 60 ml/min 10/07/20 03:58 BUN/Creatinine Ratio 12 % 10/07/20 03:58 Glucose 65 mg/dL (65-100) 10/07/20 03:58 POC Glucose 86 mg/dL (70-105) 10/06/20 20:35 Hemoglobin A1c 5.0 % (4-6) 10/06/20 Unknown Calcium 8.3 mg/dL (8.4-10.2) L 10/07/20 03:58 Total Bilirubin 0.30 mg/dL (0.1-1.2) 10/05/20 19:47 AST 59 units/L (5-40) H 10/05/20 19:47 ALT 24 units/L (7-56) 10/05/20 19:47 Alkaline Phosphatase 176 units/L (35-129) H 10/05/20 19:47 Total Protein 7.6 g/dL (6.3-8.2) 10/05/20 19:47 Albumin 3.0 g/dL (3.9-5) L 10/05/20 19:47 Albumin/Globulin Ratio 0.7 % 10/05/20 19:47 Triglycerides 215 mg/dL (2-149) H 10/06/20 Unknown Cholesterol 192 mg/dL (50-199) 10/06/20 Unknown LDL Cholesterol Direct 130 mg/dL (50-130) 10/06/20 Unknown HDL Cholesterol 47 mg/dL (40-59) 10/06/20 Unknown Cholesterol/HDL Ratio 4.08 % 10/06/20 Unknown Sal/IV: Voiding Method Bedside Commode Active Medications - Current Medications Current Medications: Generic Name Dose Route Start Last Admin Trade Name Freq PRN Reason Stop Dose Admin Acetaminophen 650 mg 10/06/20 02:13 10/06/20 21:12 Acetaminophen 325 Mg Tab PO 650 mg Q4H PRN Administration Pain MILD(1-3)/Fever >100.5/RUCKER Albuterol 2.5 mg 10/06/20 02:47 Albuterol 2.5 Mg/3 Ml Nebu IH Q4HRT PRN Shortness Of Breath/ cough Dextrose 0 ml 10/06/20 02:13 Dextrose 50% In Water (25gm) 50 Ml Syringe IV Q30MIN PRN Hypoglycemia Protocol Diphenhydramine HCl 25 mg 10/07/20 01:48 10/07/20 02:03 Diphenhydramine 50 Mg/Ml Vial IV 25 mg Q6H PRN Administration Itching Ferrous Sulfate 325 mg 10/06/20 10:00 10/06/20 10:26 Ferrous Sulfate 325 Mg Tab PO 325 mg QDAY MIRIAM Administration Gabapentin 900 mg 10/06/20 08:00 10/06/20 21:12 Gabapentin 300 Mg Cap PO 900 mg TID MIRIAM Administration Guaifenesin 600 mg 10/06/20 03:02 10/06/20 21:12 Guaifenesin Er 600 Mg Tab PO 600 mg BID MIRIAM Administration Hydrocortisone Acetate 1 applic 10/07/20 05:17 10/07/20 05:58 Hydrocortisone 2.5% Topical Cream 20 Gm TP 1 applic Q8H PRN Administration Skin Irritation Dextrose/Sodium Chloride 1,000 mls @ 100 mls/hr 10/06/20 03:00 10/07/20 04:33 D5/0.45ns IV 100 mls/hr DIRECT MIRIAM Administration Insulin Human Lispro 0 unit 10/06/20 07:30 10/06/20 21:13 Insulin Lispro 100 Unit/Ml SUB-Q Not Given ACHS [facility] Protocol Nicotine 14 mg 10/06/20 10:00 10/06/20 10:27 Nicotine 14 Mg/24 Hr Patch TD 14 mg QDAY MIRIAM Administration Ondansetron HCl 4 mg 10/06/20 02:13 Ondansetron 4 Mg/2 Ml Inj IV Q6H PRN Nausea And Vomiting Oxycodone/Acetaminophen 1 tab 10/06/20 02:13 Oxycodone /Acetaminophen 5-325mg Tab PO Q6H PRN Pain, Moderate (4-6) Pantoprazole Sodium 40 mg 10/06/20 10:00 10/06/20 21:11 Pantoprazole 40 Mg Inj IV 40 mg BID MIRIAM Administration Sodium Chloride 10 ml 10/06/20 10:00 10/06/20 21:14 Sodium Chloride 0.9% 10 Ml Flush Syringe IV 10 ml BID MIRIAM Administration Sodium Chloride 10 ml 10/06/20 02:13 Sodium Chloride 0.9% 10 Ml Flush Syringe IV PRN PRN LINE FLUSH Nutrition/Malnutrition Assess - Dietary Evaluation Nutrition/Malnutrition Findings: Nutrition Notes Start: 10/06/20 09:37 Freq: Status: Active Protocol: Document 10/06/20 09:37 LP (Rec: 10/06/20 09:42 LP [id number]) Nutrition Notes Need for Assessment generated from: MD Order Initial or Follow up Assessment Current Diagnosis COPD,Diabetes,Hypertension Other Pertinent Diagnosis dehydration, diarrhea Current Diet Cardiac/consistent CHO Labs/Tests REviewed Pertinent Medications Reviewed Height 5 ft 7 in Weight 87.1 kg [place] Body Weight (kg) 61.36 BMI 30.0 Weight change and time frame 23% in 3 months Weight Status Obese Subjective/Other Information Consult for malnutrition. 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 Pt stated wt loss of 60lbs in 3 months. Burn Absent Trauma Absent GI Symptoms Diarrhea Current % PO Negligible Minimum of two criteria Yes Energy Intake (severe) < or equal to 50% Estimated Energy Requirement > or equal to 5 days Interpretation of Weight Loss (severe) >7.5% in 3 months #1 Nutrition Diagnosis Malnutrition Etiology poor appetite As Evidenced by Signs and Symptoms wt loss of 23% in 3 months, consuming less than 50% of meals [employer]BULETTE DRIVER Is patient on ventilator? No Is Patient Ambulatory and/or Out of Bed Yes REE-([facility]-ambulatory/OOB) [ [id number] [id number]] Calculation Used for Recommendations [facility] Additional Notes Protein needs are 108-130g (1. 2-1.5g/kg) Fluid needs are 1ml/kcal Nutrition Intervention Change Diet Order: Continue Add Supplement/Snack (indicate name/kcal Glucerna strawberry BID /protein ) Provides kCal: 440 Provides Protein (gm) 20 Goal #1 Meet at least 80% of kcal and protein needs Goal #2 Wt maintenance Anticipated Discharge Needs: Cardiac/consistent CHO with ONS as needed Follow-Up By: 10/08/20 Additional Comments Follow for intakes and ONS tolerance
[2020-10-07] MEDS: INSULIN LISPRO 100 UNIT/ML SUB-Q SCH ×4 (09:58→21:35)
[2020-10-07] MEDS: FERROUS SULFATE 325 MG TAB PO SCH (09:59)
[2020-10-07] MEDS: GABAPENTIN 300 MG CAP PO SCH ×3 (10:00→21:40)
[2020-10-07] MEDS: guaiFENesin ER 600 MG TAB PO SCH ×2 (10:01→21:35)
[2020-10-07] MEDS: NICOTINE 14 MG/24 HR PATCH TD SCH ×2 (10:03→23:42)
[2020-10-07] MEDS: oxyCODONE /ACETAMINOPHEN 5-325MG TAB PO PRN ×3 (10:12→23:38)
[2020-10-07] MEDS: PANTOPRAZOLE 40 MG TAB PO SCH ×2 (10:13→15:38)
--- NOTE | 2020-10-07 14:10 | Gastroenterology Progress Note ---
Assessment and Plan hematochezia - no episodes since admission. H/H stable. colonoscopy per pt 2 months ago with large polyp removed. will need f/u with primary gi after discharge. diarrhea - improved today, if returns r/o c diff llq abd pain - ct with left adnexal mass concerning for ovarian neoplasm, will need drop pit worker evaluation. Subjective Date of service: 10/07/20 Principal diagnosis: diarrhea/hematochezia Interval history: no bleeding overnight/today. resting comfortably. still with loose bm's but overall improved Objective - Constitutional Vitals: Temp Pulse Resp BP Pulse Ox 98.1 F 84 18 110/62 97 10/07/20 11:14 10/07/20 11:14 10/07/20 11:14 10/07/20 11:14 10/07/20 11:14 General appearance: no acute distress - Cardiovascular Rhythm: regular Heart Sounds: Present: S1 & S2 - Gastrointestinal General gastrointestinal: Present: soft, tender (left sided ttp) - Labs CBC & Chem 7: 10/07/20 03:58 10/07/20 03:58 Labs: Laboratory Results - last 24 hr 10/06/20 10/06/20 10/06/20 14:22 15:40 20:35 WBC RBC Hgb 9.1 L Hct 29.5 L MCV MCH MCHC RDW Plt Count Lymph % (Auto) [place] % (Auto) Eos % (Auto) Baso % (Auto) Lymph # (Auto) [place] # (Auto) Eos # (Auto) Baso # (Auto) Seg Neutrophils % Seg Neutrophils # Sodium Potassium Chloride Carbon Dioxide Anion Gap BUN Creatinine Estimated GFR BUN/Creatinine Ratio Glucose POC Glucose 99 86 Calcium 10/06/20 10/07/20 10/07/20 22:16 03:58 03:58 WBC 8.8 RBC 3.81 Hgb 8.9 L 8.5 L Hct 29.4 L 29.5 L MCV 77 L MCH 22 L MCHC 29 L RDW 24.3 H Plt Count 278 Lymph % (Auto) 15.8 [place] % (Auto) 9.5 H Eos % (Auto) 2.0 Baso % (Auto) 0.4 Lymph # (Auto) 1.4 [place] # (Auto) 0.8 Eos # (Auto) 0.2 Baso # (Auto) 0.0 Seg Neutrophils % 72.3 H Seg Neutrophils # 6.4 Sodium 136 L Potassium 3.8 Chloride 96.4 L Carbon Dioxide 27 Anion Gap 16 BUN 7 Creatinine 0.6 Estimated GFR > 60 BUN/Creatinine Ratio 12 Glucose 65 POC Glucose Calcium 8.3 L 10/07/20 10/07/20 07:39 11:11 WBC RBC Hgb Hct MCV MCH MCHC RDW Plt Count Lymph % (Auto) [place] % (Auto) Eos % (Auto) Baso % (Auto) Lymph # (Auto) [place] # (Auto) Eos # (Auto) Baso # (Auto) Seg Neutrophils % Seg Neutrophils # Sodium Potassium Chloride Carbon Dioxide Anion Gap BUN Creatinine Estimated GFR BUN/Creatinine Ratio Glucose POC Glucose 115 H 112 H Calcium
[2020-10-07 14:19] LABS: Hematocrit 28.7 % (30.3-42.9); Hemoglobin 8.6 gm/dl (10.1-14.3)
[2020-10-08 00:59] LABS: Hematocrit 28.7 % (30.3-42.9); Hemoglobin 8.6 gm/dl (10.1-14.3)
[2020-10-08] MEDS: D5W/0.45% NACL 1,000 ML IV SCH ×2 (03:42→13:35)
--- NOTE | 2020-10-08 08:30 | Progress Note ---
Assessment and Plan Assessment and plan: GI bleed/hematochezia Hyponatremia Acute blood loss anemia Severe protein calorie malnutrition Ovarian cystic mass Diabetes mellitus type 2 Tobacco abuse 10/06. Continue IV fluid hydration and follow-up BMP. Transfuse for hemoglobin less than 7. Follow-up CBC. Continue IV Protonix twice daily. Await GI consultation. 10/07. GI plans to treat conservatively. Check C. Diff for evaluation of diarrhea. H&H is stable. Transfuse for hemoglobin less than 7. Continue Protonix. TRANSPORTATION MAINTENANCE OPERATOR consult for ovarian mass. 10/08. Patient with no further episodes of hematochezia since admission. H/H stable. Colonoscopy per pt 2 months ago with large polyp removed. The patient will need f/u with primary gi after discharge. C. difficile pending. TRANSPORTATION MAINTENANCE OPERATOR evaluation for left lower quadrant abdominal pain and CT revealing left adnexal mass concerning for ovarian neoplasm. History Interval history: No new issues overnight Hospitalist Physical - Constitutional Vitals: Temp Pulse Resp BP Pulse Ox 97.5 F L 67 16 121/65 94 10/08/20 03:09 10/08/20 04:45 10/08/20 03:09 10/08/20 03:09 10/08/20 03:09 General appearance: Present: no acute distress, well-nourished - EENT Eyes: Present: PERRL, EOM intact ENT: hearing intact, clear oral mucosa, dentition normal - Neck Neck: Present: supple, normal ROM - Respiratory Respiratory effort: normal Respiratory: bilateral: CTA - Cardiovascular Rhythm: regular Heart Sounds: Present: S1 & S2. Absent: gallop, rub - Extremities Extremities: no ischemia, No edema, Full ROM - Abdominal General gastrointestinal: soft, non-tender, non-distended, normal bowel sounds - Integumentary Integumentary: Present: clear, warm, dry - Neurologic Neurologic: CNII-XII intact, moves all extremities Results - Labs CBC & Chem 7: 10/07/20 23:16 10/07/20 03:58 Labs: Laboratory Last Values WBC 8.8 K/mm3 (4.5-11.0) 10/07/20 03:58 RBC 3.81 M/mm3 (3.65-5.03) 10/07/20 03:58 Hgb 8.6 gm/dl (10.1-14.3) L 10/07/20 23:16 Hct 28.7 % (30.3-42.9) L 10/07/20 23:16 MCV 77 fl (79-97) L 10/07/20 03:58 MCH 22 pg (28-32) L 10/07/20 03:58 MCHC 29 % (30-34) L 10/07/20 03:58 RDW 24.3 % (13.2-15.2) H 10/07/20 03:58 Plt Count 278 K/mm3 (140-440) 10/07/20 03:58 Lymph % (Auto) 15.8 % (13.4-35.0) 10/07/20 03:58 Stevens % (Auto) 9.5 % (0.0-7.3) H 10/07/20 03:58 Eos % (Auto) 2.0 % (0.0-4.3) 10/07/20 03:58 Baso % (Auto) 0.4 % (0.0-1.8) 10/07/20 03:58 Lymph # (Auto) 1.4 K/mm3 (1.2-5.4) 10/07/20 03:58 Stevens # (Auto) 0.8 K/mm3 (0.0-0.8) 10/07/20 03:58 Eos # (Auto) 0.2 K/mm3 (0.0-0.4) 10/07/20 03:58 Baso # (Auto) 0.0 K/mm3 (0.0-0.1) 10/07/20 03:58 Seg Neutrophils % 72.3 % (40.0-70.0) H 10/07/20 03:58 Seg Neutrophils # 6.4 K/mm3 (1.8-7.7) 10/07/20 03:58 PT 13.7 Sec. (12.2-14.9) 10/05/20 22:27 INR 1.06 (0.87-1.13) 10/05/20 22:27 APTT 34.9 Sec. (24.2-36.6) 10/05/20 22:27 Sodium 136 mmol/L (137-145) L 10/07/20 03:58 Potassium 3.8 mmol/L (3.6-5.0) 10/07/20 03:58 Chloride 96.4 mmol/L (98-107) L 10/07/20 03:58 Carbon Dioxide 27 mmol/L (22-30) 10/07/20 03:58 Anion Gap 16 mmol/L 10/07/20 03:58 BUN 7 mg/dL (7-17) 10/07/20 03:58 Creatinine 0.6 mg/dL (0.6-1.2) 10/07/20 03:58 Estimated GFR > 60 ml/min 10/07/20 03:58 BUN/Creatinine Ratio 12 % 10/07/20 03:58 Glucose 65 mg/dL (65-100) 10/07/20 03:58 POC Glucose 148 mg/dL (70-105) H 10/07/20 20:15 Hemoglobin A1c 5.0 % (4-6) 10/06/20 Unknown Calcium 8.3 mg/dL (8.4-10.2) L 10/07/20 03:58 Total Bilirubin 0.30 mg/dL (0.1-1.2) 10/05/20 19:47 AST 59 units/L (5-40) H 10/05/20 19:47 ALT 24 units/L (7-56) 10/05/20 19:47 Alkaline Phosphatase 176 units/L (35-129) H 10/05/20 19:47 Total Protein 7.6 g/dL (6.3-8.2) 10/05/20 19:47 Albumin 3.0 g/dL (3.9-5) L 10/05/20 19:47 Albumin/Globulin Ratio 0.7 % 10/05/20 19:47 Triglycerides 215 mg/dL (2-149) H 10/06/20 Unknown Cholesterol 192 mg/dL (50-199) 10/06/20 Unknown LDL Cholesterol Direct 130 mg/dL (50-130) 10/06/20 Unknown HDL Cholesterol 47 mg/dL (40-59) 10/06/20 Unknown Cholesterol/HDL Ratio 4.08 % 10/06/20 Unknown Sal/IV: Voiding Method Bedside Commode Active Medications - Current Medications Current Medications: Generic Name Dose Route Start Last Admin Trade Name Freq PRN Reason Stop Dose Admin Acetaminophen 650 mg 10/06/20 02:13 10/06/20 21:12 Acetaminophen 325 Mg Tab PO 650 mg Q4H PRN Administration Pain MILD(1-3)/Fever >100.5/RUCKER Albuterol 2.5 mg 10/06/20 02:47 Albuterol 2.5 Mg/3 Ml Nebu IH Q4HRT PRN Shortness Of Breath/ cough Dextrose 0 ml 10/06/20 02:13 Dextrose 50% In Water (25gm) 50 Ml Syringe IV Q30MIN PRN Hypoglycemia Protocol Diphenhydramine HCl 25 mg 10/07/20 01:48 10/07/20 02:03 Diphenhydramine 50 Mg/Ml Vial IV 25 mg Q6H PRN Administration Itching Ferrous Sulfate 325 mg 10/06/20 10:00 10/07/20 09:59 Ferrous Sulfate 325 Mg Tab PO 325 mg QDAY MIRIAM Administration Gabapentin 900 mg 10/06/20 08:00 10/07/20 21:40 Gabapentin 300 Mg Cap PO 900 mg TID MIRIAM Administration Guaifenesin 600 mg 10/06/20 03:02 10/07/20 21:35 Guaifenesin Er 600 Mg Tab PO 600 mg BID MIRIAM Administration Hydrocortisone Acetate 1 applic 10/07/20 05:17 10/07/20 05:58 Hydrocortisone 2.5% Topical Cream 20 Gm TP 1 applic Q8H PRN Administration Skin Irritation Dextrose/Sodium Chloride 1,000 mls @ 100 mls/hr 10/06/20 03:00 10/08/20 03:42 D5/0.45ns IV 100 mls/hr DIRECT MIRIAM Administration Insulin Human Lispro 0 unit 10/06/20 07:30 10/07/20 21:35 Insulin Lispro 100 Unit/Ml SUB-Q Not Given ACHS MIRIAM Protocol Nicotine 14 mg 10/06/20 10:00 10/07/20 23:42 Nicotine 14 Mg/24 Hr Patch TD 14 mg QDAY MIRIAM Administration Ondansetron HCl 4 mg 10/06/20 02:13 Ondansetron 4 Mg/2 Ml Inj IV Q6H PRN Nausea And Vomiting Oxycodone/Acetaminophen 1 tab 10/06/20 02:13 10/07/20 23:38 Oxycodone /Acetaminophen 5-325mg Tab PO 1 tab Q6H PRN Administration Pain, Moderate (4-6) Pantoprazole Sodium 40 mg 10/07/20 10:00 10/07/20 15:38 Pantoprazole 40 Mg Tab PO 40 mg BIDAC MIRIAM Administration Sodium Chloride 10 ml 10/06/20 10:00 10/07/20 21:37 Sodium Chloride 0.9% 10 Ml Flush Syringe IV 10 ml BID MIRIAM Administration Sodium Chloride 10 ml 10/06/20 02:13 Sodium Chloride 0.9% 10 Ml Flush Syringe IV PRN PRN LINE FLUSH Nutrition/Malnutrition Assess - Dietary Evaluation Nutrition/Malnutrition Findings: Nutrition Notes Start: 10/06/20 09:37 Freq: Status: Active Protocol: Document 10/06/20 09:37 LP (Rec: 10/06/20 09:42 LP [id number]) Nutrition Notes Need for Assessment generated from: MD Order Initial or Follow up Assessment Current Diagnosis COPD,Diabetes,Hypertension Other Pertinent Diagnosis dehydration, diarrhea Current Diet Cardiac/consistent CHO Labs/Tests REviewed Pertinent Medications Reviewed Height 5 ft 7 in Weight 87.1 kg [place] Body Weight (kg) 61.36 BMI 30.0 Weight change and time frame 23% in 3 months Weight Status Obese Subjective/Other Information Consult for malnutrition. 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 Pt stated wt loss of 60lbs in 3 months. Burn Absent Trauma Absent GI Symptoms Diarrhea Current % PO Negligible Minimum of two criteria Yes Energy Intake (severe) < or equal to 50% Estimated Energy Requirement > or equal to 5 days Interpretation of Weight Loss (severe) >7.5% in 3 months #1 Nutrition Diagnosis Malnutrition Etiology poor appetite As Evidenced by Signs and Symptoms wt loss of 23% in 3 months, consuming less than 50% of meals SENIOR ESTIMATOR Is patient on ventilator? No Is Patient Ambulatory and/or Out of Bed Yes REE-([facility]-ambulatory/OOB) [ 1902.719 [id number]] Calculation Used for Recommendations [facility] Additional Notes Protein needs are 108-130g (1. 2-1.5g/kg) Fluid needs are 1ml/kcal Nutrition Intervention Change Diet Order: Continue Add Supplement/Snack (indicate name/kcal Glucerna strawberry BID /protein ) Provides kCal: 440 Provides Protein (gm) 20 Goal #1 Meet at least 80% of kcal and protein needs Goal #2 Wt maintenance Anticipated Discharge Needs: Cardiac/consistent CHO with ONS as needed Follow-Up By: 10/08/20 Additional Comments Follow for intakes and ONS tolerance
[2020-10-08] MEDS: INSULIN LISPRO 100 UNIT/ML SUB-Q SCH ×5 (08:31→22:00)
--- NOTE | 2020-10-08 08:39 | Gastroenterology Progress Note ---
Assessment and Plan hematochezia - no episodes since admission. H/H stable. pt reports recent large polypectomy at [place] 2 months ago. instructed to f/u with primary gi after outpatient for surveillance as indicated (report not available) Diarrhea - improved/stable abd pain - left sided and awaiting finisher merchant products eval for left adnexal/possible ovarian mass will sign off, please call as needed. Subjective Date of service: 10/08/20 Principal diagnosis: diarrhea/hematochezia Interval history: pt reports continued left sided abd pain; no hematochezia last couple days. t olerating po. wants to go home. Objective - Exam Narrative Exam: Gen: nad abd: soft, + left sided/llq ttp - Constitutional Vitals: Temp Pulse Resp BP Pulse Ox 97.5 F L 67 16 121/65 94 10/08/20 03:09 10/08/20 04:45 10/08/20 03:09 10/08/20 03:09 10/08/20 03:09 - Labs CBC & Chem 7: 10/07/20 23:16 10/07/20 03:58 Labs: Laboratory Results - last 24 hr 10/07/20 10/07/20 10/07/20 07:39 11:11 14:02 Hgb 8.6 L Hct 28.7 L POC Glucose 115 H 112 H 10/07/20 10/07/20 10/07/20 16:23 20:15 23:16 Hgb 8.6 L Hct 28.7 L POC Glucose 99 148 H
[2020-10-08] MEDS: GABAPENTIN 300 MG CAP PO SCH ×3 (10:15→22:13)
[2020-10-08] MEDS: oxyCODONE /ACETAMINOPHEN 5-325MG TAB PO PRN ×2 (10:15→22:17)
[2020-10-08] MEDS: FERROUS SULFATE 325 MG TAB PO SCH (10:16)
[2020-10-08] MEDS: NICOTINE 14 MG/24 HR PATCH TD SCH (10:16)
[2020-10-08] MEDS: guaiFENesin ER 600 MG TAB PO SCH ×2 (10:16→22:13)
[2020-10-08] MEDS: PANTOPRAZOLE 40 MG TAB PO SCH ×2 (10:16→17:27)
--- NOTE | 2020-10-08 13:10 | Consultation ---
History of Present Illness Consult date: 10/08/20 Reason for consult: ovarian cyst (10 cms left ovarian cyst) Past History Past Medical History: hypertension, diabetes, neurologic, other (COPD,ANEMIA, GI POLYPS,HYPERLIPIDEMIA) Past Surgical History: other (BTL, MELIA, BREAST MASS REMOVAL.? EXPLORATORY LAP FOR OVARIAN MASS IN PAST.) RE[employer]ER [employer] History: fibroids Family/Genetic History: hypertension Social history: , smoking () Medications and Allergies Allergies Allergy/AdvReac Type Severity Reaction Status Date / Time No Known Allergies Allergy Verified 11/15/15 20:29 Home Medications Medication Instructions Recorded Confirmed Last Taken Type Ferrous Sulfate [Iron 325 MG] 65 mg PO QDAY 10/05/20 10/05/20 Unknown History Gabapentin 900 mg PO TID 10/05/20 10/05/20 Unknown History Glimepiride [Amaryl] 2 mg PO QDAY 10/05/20 10/05/20 Unknown History Loratadine 10 mg PO QDAY 10/05/20 10/05/20 Unknown History Active Meds: Active Medications Acetaminophen (Acetaminophen 325 Mg Tab) 650 mg PO Q4H PRN PRN Reason: Pain MILD(1-3)/Fever >100.5/RUCKER Last Admin: 10/06/20 21:12 Dose: 650 mg Documented by: Albuterol (Albuterol 2.5 Mg/3 Ml Nebu) 2.5 mg IH Q4HRT PRN PRN Reason: Shortness Of Breath/ cough Dextrose (Dextrose 50% In Water (25gm) 50 Ml Syringe) 0 ml IV Q30MIN PRN; Protocol PRN Reason: Hypoglycemia Diphenhydramine HCl (Diphenhydramine 50 Mg/Ml Vial) 25 mg IV Q6H PRN PRN Reason: Itching Last Admin: 10/07/20 02:03 Dose: 25 mg Documented by: Ferrous Sulfate (Ferrous Sulfate 325 Mg Tab) 325 mg PO QDAY [facility] Last Admin: 10/08/20 10:16 Dose: 325 mg Documented by: Gabapentin (Gabapentin 300 Mg Cap) 900 mg PO TID [facility] Last Admin: 10/08/20 10:15 Dose: 900 mg Documented by: Guaifenesin (Guaifenesin Er 600 Mg Tab) 600 mg PO BID [facility] Last Admin: 10/08/20 10:16 Dose: 600 mg Documented by: Hydrocortisone Acetate (Hydrocortisone 2.5% Topical Cream 20 Gm) 1 applic TP Q8H PRN PRN Reason: Skin Irritation Last Admin: 10/07/20 05:58 Dose: 1 applic Documented by: Dextrose/Sodium Chloride (D5/0.45ns) 1,000 mls @ 100 mls/hr IV DIRECT [facility] Last Admin: 10/08/20 03:42 Dose: 100 mls/hr Documented by: Insulin Human Lispro (Insulin Lispro 100 Unit/Ml) 0 unit SUB-Q ACHS [facility]; Protocol Last Admin: 10/08/20 12:32 Dose: Not Given Documented by: Nicotine (Nicotine 14 Mg/24 Hr Patch) 14 mg TD QDAY [facility] Last Admin: 10/08/20 10:16 Dose: 14 mg Documented by: Ondansetron HCl (Ondansetron 4 Mg/2 Ml Inj) 4 mg IV Q6H PRN PRN Reason: Nausea And Vomiting Oxycodone/Acetaminophen (Oxycodone /Acetaminophen 5-325mg Tab) 1 tab PO Q6H PRN PRN Reason: Pain, Moderate (4-6) Last Admin: 10/08/20 10:15 Dose: 1 tab Documented by: Pantoprazole Sodium (Pantoprazole 40 Mg Tab) 40 mg PO BIDAC [facility] Last Admin: 10/08/20 10:16 Dose: 40 mg Documented by: Sodium Chloride (Sodium Chloride 0.9% 10 Ml Flush Syringe) 10 ml IV BID [facility] Last Admin: 10/08/20 10:16 Dose: 10 ml Documented by: Sodium Chloride (Sodium Chloride 0.9% 10 Ml Flush Syringe) 10 ml IV PRN PRN PRN Reason: LINE FLUSH Review of Systems Constitutional: weight loss (60 POUNDS IN 6 MONTHS.) Ears, nose, mouth and throat: deferred Breasts: deferred Rectal Exam: deferred - Vital Signs Vital signs: Vital Signs Temp Pulse Resp BP Pulse Ox 98.0 F 116 H 16 105/76 95 10/05/20 19:33 10/05/20 19:33 10/05/20 19:33 10/05/20 19:33 10/05/20 19:33 Temp Pulse Resp BP Pulse Ox 97.5 F L 67 16 121/65 98 10/08/20 03:09 10/08/20 04:45 10/08/20 03:09 10/08/20 03:09 10/08/20 10:00 - Physical Exam Abdomen: Positive: other (ML SCAR ANF SUPRA-PUBIC SCAR.) Vulva: both: normal Vagina: Positive: normal moisture. Negative: discharge Cervix: Positive: absent Uterus: Positive: absent Adnexa: both: mass (UNABLE TO FEEL LEFT OVARIAN MASS) Extremities: Results Result Diagrams: 10/07/20 23:16 10/07/20 03:58 Abnormal lab results 10/07/20 10/07/20 10/07/20 Range/Units 14:02 20:15 23:16 Hgb 8.6 L 8.6 L (10.1-14.3) gm/dl Hct 28.7 L 28.7 L (30.3-42.9) % POC Glucose 148 H (70-105) mg/dL All other labs normal. Assessment and Plan LEFT OVARIAN CYST 10 CMS. GET ALPHA FETO PROTEIN TUMOR ORDERED.CONSIDER SX IF PT IS APPROPRIATE FOR THIS HOSP.
[2020-10-09 05:51] LABS: Hematocrit 29.9 % (30.3-42.9); Hemoglobin 9.1 gm/dl (10.1-14.3); Mean Corpuscular HGB Conc 30 % (30-34); Mean Corpuscular Volume 77 fl (79-97); Platelet Count 282 K/mm3 (140-440); Red Blood Count 3.89 M/mm3 (3.65-5.03); Red Cell Distribution Width 25.1 % (13.2-15.2)
[2020-10-09 06:08] LABS: Blood Urea Nitrogen 3 mg/dL (7-17); Calcium 8.1 mg/dL (8.4-10.2); Hemolysis Index 3
[2020-10-09 06:09] LABS: BUN/Creatinine Ratio 6
[2020-10-09 06:47] LABS: Total Cells Counted 100
[2020-10-09 06:48] LABS: Anisocytosis 2+; Hypochromasia 1+; Platelet Estimate Consistent w Auto
[2020-10-09] MEDS: INSULIN LISPRO 100 UNIT/ML SUB-Q SCH ×2 (07:30→12:29)
[2020-10-09] MEDS: oxyCODONE /ACETAMINOPHEN 5-325MG TAB PO PRN ×2 (07:46→16:21)
[2020-10-09] MEDS: PANTOPRAZOLE 40 MG TAB PO SCH ×2 (07:47→15:59)
[2020-10-09] MEDS: GABAPENTIN 300 MG CAP PO SCH ×2 (07:47→13:09)
[2020-10-09 08:47] VITALS: BP 114/75
--- NOTE | 2020-10-09 08:48 | Progress Note ---
Assessment and Plan Assessment and plan: GI bleed/hematochezia Hyponatremia Acute blood loss anemia Severe protein calorie malnutrition Ovarian cystic mass Diabetes mellitus type 2 Tobacco abuse 10/06. Continue IV fluid hydration and follow-up BMP. Transfuse for hemoglobin less than 7. Follow-up CBC. Continue IV Protonix twice daily. Await GI consultation. 10/07. GI plans to treat conservatively. Check C. Diff for evaluation of diarrhea. H&H is stable. Transfuse for hemoglobin less than 7. Continue Protonix. COMMUNICATIONS MEDIA PROFESSOR consult for ovarian mass. 10/08. Patient with no further episodes of hematochezia since admission. H/H stable. Colonoscopy per pt 2 months ago with large polyp removed. The patient will need f/u with primary gi after discharge. C. difficile pending. COMMUNICATIONS MEDIA PROFESSOR evaluation for left lower quadrant abdominal pain and CT revealing left adnexal mass concerning for ovarian neoplasm. 10/09; no hematochezia since admission. H&H stable. GI signed off. Patient has left-sided adenexial mass. Was evaluated by QUALITY TECHNICIAN FIBERGLASS and will follow the recommendations. Discussed with Eva and he recommends to discharge the patient and follow with him in the office, for COMMUNICATIONS MEDIA PROFESSOR oncologist referral. History Interval history: Patient was seen and evaluated this morning No nursing issues overnight Patient does not have any complaints Hospitalist Physical - Physical exam Narrative exam: Not in cardiopulmonary distress. The patient appeared well nourished and normally developed. Vital signs as documented. Head exam is unremarkable. No scleral icterus . Neck is without jugular venous distension, thyromegaly, or carotid bruits. Lungs are clear to auscultation. Cardiac exam reveals regular rate and Rhythm. Abdominal exam reveals normal bowel sounds, nontender, no organomegaly. Extremities are nonedematous and both femoral and pedal pulses are normal. HOP WEIGHER: Alert and oriented 3. No focal weakness. - Constitutional Vitals: Temp Pulse Resp BP Pulse Ox 98.7 F 87 18 120/74 97 10/09/20 04:20 10/09/20 04:20 10/09/20 04:20 10/09/20 04:20 10/09/20 04:20 General appearance: Present: no acute distress, well-nourished Results - Labs CBC & Chem 7: 10/09/20 05:26 10/09/20 05:26 Labs: Laboratory Last Values WBC 5.3 K/mm3 (4.5-11.0) 10/09/20 05:26 RBC 3.89 M/mm3 (3.65-5.03) 10/09/20 05:26 Hgb 9.1 gm/dl (10.1-14.3) L 10/09/20 05:26 Hct 29.9 % (30.3-42.9) L 10/09/20 05:26 MCV 77 fl (79-97) L 10/09/20 05:26 MCH 23 pg (28-32) L 10/09/20 05:26 MCHC 30 % (30-34) 10/09/20 05:26 RDW 25.1 % (13.2-15.2) H 10/09/20 05:26 Plt Count 282 K/mm3 (140-440) 10/09/20 05:26 Lymph % (Auto) 15.8 % (13.4-35.0) 10/07/20 03:58 [place] % (Auto) 9.5 % (0.0-7.3) H 10/07/20 03:58 Eos % (Auto) 2.0 % (0.0-4.3) 10/07/20 03:58 Baso % (Auto) 0.4 % (0.0-1.8) 10/07/20 03:58 Lymph # (Auto) 1.4 K/mm3 (1.2-5.4) 10/07/20 03:58 [place] # (Auto) 0.8 K/mm3 (0.0-0.8) 10/07/20 03:58 Eos # (Auto) 0.2 K/mm3 (0.0-0.4) 10/07/20 03:58 Baso # (Auto) 0.0 K/mm3 (0.0-0.1) 10/07/20 03:58 Add Manual Diff Complete 10/09/20 05:26 Total Counted 100 10/09/20 05:26 Seg Neutrophils % 72.3 % (40.0-70.0) H 10/07/20 03:58 Seg Neuts % (Manual) 74.0 % (40.0-70.0) H 10/09/20 05:26 Lymphocytes % (Manual) 20.0 % (13.4-35.0) 10/09/20 05:26 Monocytes % (Manual) 5.0 % (0.0-7.3) 10/09/20 05:26 Eosinophils % (Manual) 1.0 % (0.0-4.3) 10/09/20 05:26 Nucleated RBC % Not Reportable 10/09/20 05:26 Seg Neutrophils # 6.4 K/mm3 (1.8-7.7) 10/07/20 03:58 Seg Neutrophils # Man 3.9 K/mm3 (1.8-7.7) 10/09/20 05:26 Band Neutrophils # 0.0 K/mm3 10/09/20 05:26 Lymphocytes # (Manual) 1.1 K/mm3 (1.2-5.4) L 10/09/20 05:26 Abs React Lymphs (Man) 0.0 K/mm3 10/09/20 05:26 Monocytes # (Manual) 0.3 K/mm3 (0.0-0.8) 10/09/20 05:26 Eosinophils # (Manual) 0.1 K/mm3 (0.0-0.4) 10/09/20 05:26 Basophils # (Manual) 0.0 K/mm3 (0.0-0.1) 10/09/20 05:26 Metamyelocytes # 0.0 K/mm3 10/09/20 05:26 Myelocytes # 0.0 K/mm3 10/09/20 05:26 Promyelocytes # 0.0 K/mm3 10/09/20 05:26 Blast Cells # 0.0 K/mm3 10/09/20 05:26 WBC Morphology Not Reportable 10/09/20 05:26 Hypersegmented Neuts Not Reportable 10/09/20 05:26 Hyposegmented Neuts Not Reportable 10/09/20 05:26 Hypogranular Neuts Not Reportable 10/09/20 05:26 Smudge Cells Not Reportable 10/09/20 05:26 Toxic Granulation Not Reportable 10/09/20 05:26 Toxic Vacuolation Not Reportable 10/09/20 05:26 Dohle Bodies Not Reportable 10/09/20 05:26 Pelger-Huet Anomaly Not Reportable 10/09/20 05:26 Estefany Rods Not Reportable 10/09/20 05:26 Platelet Estimate Consistent w auto 10/09/20 05:26 Clumped Platelets Not Reportable 10/09/20 05:26 Plt Clumps, EDTA Not Reportable 10/09/20 05:26 Large Platelets Not Reportable 10/09/20 05:26 Giant Platelets Not Reportable 10/09/20 05:26 Platelet Satelliting Not Reportable 10/09/20 05:26 Plt Morphology Comment Not Reportable 10/09/20 05:26 RBC Morphology Not Reportable 10/09/20 05:26 Dimorphic RBCs Not Reportable 10/09/20 05:26 Polychromasia Not Reportable 10/09/20 05:26 Hypochromasia 1+ 10/09/20 05:26 Poikilocytosis Not Reportable 10/09/20 05:26 Anisocytosis 2+ 10/09/20 05:26 Microcytosis Not Reportable 10/09/20 05:26 Macrocytosis Not Reportable 10/09/20 05:26 Spherocytes Not Reportable 10/09/20 05:26 Pappenheimer Bodies Not Reportable 10/09/20 05:26 Sickle Cells Not Reportable 10/09/20 05:26 Target Cells Not Reportable 10/09/20 05:26 Tear Drop Cells Not Reportable 10/09/20 05:26 Ovalocytes Not Reportable 10/09/20 05:26 Helmet Cells Not Reportable 10/09/20 05:26 [place] Bodies Not Reportable 10/09/20 05:26 [place] Rings Not Reportable 10/09/20 05:26 Tania Cells Not Reportable 10/09/20 05:26 Bite Cells Not Reportable 10/09/20 05:26 Crenated Cell Not Reportable 10/09/20 05:26 Elliptocytes Not Reportable 10/09/20 05:26 Acanthocytes (Spur) Not Reportable 10/09/20 05:26 Rouleaux Not Reportable 10/09/20 05:26 Hemoglobin C Crystals Not Reportable 10/09/20 05:26 Schistocytes Not Reportable 10/09/20 05:26 Malaria parasites Not Reportable 10/09/20 05:26 Arian Bodies Not Reportable 10/09/20 05:26 Hem Pathologist Commnt No 10/09/20 05:26 PT 13.7 Sec. (12.2-14.9) 10/05/20 22:27 INR 1.06 (0.87-1.13) 10/05/20 22:27 APTT 34.9 Sec. (24.2-36.6) 10/05/20 22:27 Sodium 137 mmol/L (137-145) 10/09/20 05:26 Potassium 3.4 mmol/L (3.6-5.0) L 10/09/20 05:26 Chloride 100.4 mmol/L (98-107) 10/09/20 05:26 Carbon Dioxide 27 mmol/L (22-30) 10/09/20 05:26 Anion Gap 13 mmol/L 10/09/20 05:26 BUN 3 mg/dL (7-17) L 10/09/20 05:26 Creatinine 0.5 mg/dL (0.6-1.2) L 10/09/20 05:26 Estimated GFR > 60 ml/min 10/09/20 05:26 BUN/Creatinine Ratio 6 % 10/09/20 05:26 Glucose 83 mg/dL (65-100) 10/09/20 05:26 POC Glucose 122 mg/dL (70-105) H 10/09/20 07:11 Hemoglobin A1c 5.0 % (4-6) 10/06/20 Unknown Calcium 8.1 mg/dL (8.4-10.2) L 10/09/20 05:26 Total Bilirubin 0.30 mg/dL (0.1-1.2) 10/05/20 19:47 AST 59 units/L (5-40) H 10/05/20 19:47 ALT 24 units/L (7-56) 10/05/20 19:47 Alkaline Phosphatase 176 units/L (35-129) H 10/05/20 19:47 Total Protein 7.6 g/dL (6.3-8.2) 10/05/20 19:47 Albumin 3.0 g/dL (3.9-5) L 10/05/20 19:47 Albumin/Globulin Ratio 0.7 % 10/05/20 19:47 Triglycerides 215 mg/dL (2-149) H 10/06/20 Unknown Cholesterol 192 mg/dL (50-199) 10/06/20 Unknown LDL Cholesterol Direct 130 mg/dL (50-130) 10/06/20 Unknown HDL Cholesterol 47 mg/dL (40-59) 10/06/20 Unknown Cholesterol/HDL Ratio 4.08 % 10/06/20 Unknown Sal/IV: Voiding Method Bedside Commode Active Medications - Current Medications Current Medications: Generic Name Dose Route Start Last Admin Trade Name Freq PRN Reason Stop Dose Admin Acetaminophen 650 mg 10/06/20 02:13 10/06/20 21:12 Acetaminophen 325 Mg Tab PO 650 mg Q4H PRN Administration Pain MILD(1-3)/Fever >100.5/RUCKER Albuterol 2.5 mg 10/06/20 02:47 Albuterol 2.5 Mg/3 Ml Nebu IH Q4HRT PRN Shortness Of Breath/ cough Dextrose 0 ml 10/06/20 02:13 Dextrose 50% In Water (25gm) 50 Ml Syringe IV Q30MIN PRN Hypoglycemia Protocol Diphenhydramine HCl 25 mg 10/07/20 01:48 10/07/20 02:03 Diphenhydramine 50 Mg/Ml Vial IV 25 mg Q6H PRN Administration Itching Ferrous Sulfate 325 mg 10/06/20 10:00 10/08/20 10:16 Ferrous Sulfate 325 Mg Tab PO 325 mg QDAY MIRIAM Administration Gabapentin 900 mg 10/06/20 08:00 10/09/20 07:47 Gabapentin 300 Mg Cap PO 900 mg TID MIRIAM Administration Guaifenesin 600 mg 10/06/20 03:02 10/08/20 22:13 Guaifenesin Er 600 Mg Tab PO 600 mg BID MIRIAM Administration Hydrocortisone Acetate 1 applic 10/07/20 05:17 10/07/20 05:58 Hydrocortisone 2.5% Topical Cream 20 Gm TP 1 applic Q8H PRN Administration Skin Irritation Dextrose/Sodium Chloride 1,000 mls @ 100 mls/hr 10/06/20 03:00 10/08/20 13:35 D5/0.45ns IV 100 mls/hr DIRECT MIRIAM Administration Insulin Human Lispro 0 unit 10/06/20 07:30 10/09/20 07:30 Insulin Lispro 100 Unit/Ml SUB-Q Not Given ACHS MIRIAM Protocol Nicotine 14 mg 10/06/20 10:00 10/08/20 10:16 Nicotine 14 Mg/24 Hr Patch TD 14 mg QDAY MIRIAM Administration Ondansetron HCl 4 mg 10/06/20 02:13 Ondansetron 4 Mg/2 Ml Inj IV Q6H PRN Nausea And Vomiting Oxycodone/Acetaminophen 1 tab 10/06/20 02:13 10/09/20 07:46 Oxycodone /Acetaminophen 5-325mg Tab PO 1 tab Q6H PRN Administration Pain, Moderate (4-6) Pantoprazole Sodium 40 mg 10/07/20 10:00 10/09/20 07:47 Pantoprazole 40 Mg Tab PO 40 mg BIDAC MIRIAM Administration Sodium Chloride 10 ml 10/06/20 10:00 10/08/20 22:19 Sodium Chloride 0.9% 10 Ml Flush Syringe IV 10 ml BID MIRIAM Administration Sodium Chloride 10 ml 10/06/20 02:13 Sodium Chloride 0.9% 10 Ml Flush Syringe IV PRN PRN LINE FLUSH Nutrition/Malnutrition Assess - Dietary Evaluation Nutrition/Malnutrition Findings: Nutrition Notes Start: 10/06/20 09:37 Freq: Status: Active Protocol: Document 10/08/20 12:34 (Rec: 10/08/20 12:39 [id number]) Nutrition Notes Initial or Follow up Reassessment Current Diagnosis COPD,Diabetes,Hypertension Other Pertinent Diagnosis dehydration, diarrhea Current Diet Cardiac/consistent CHO Labs/Tests Reviewed Pertinent Medications Reviewed Height 5 ft 7 in Weight 85.7 kg [place] Body Weight (kg) 61.36 BMI 29.5 Weight Status Overweight Subjective/Other Information FU for intakes. Pt reports eating 25-50% of meals due to not liking the food. Pt would like salt and meat for breakfast. Pt reports she does not have hypertension anymore and follows a low sodium diet at home. She was scared to try Glucerna because she does not want it to cause diarrhea. Encouraged pt to drink ONS slowly and stop if diarrhea starts. Percent of energy/protein needs met: 34%/26% Burn Absent Trauma Absent GI Symptoms None Current % PO Poor (25-49%) Minimum of two criteria Yes Energy Intake (severe) < or equal to 50% Estimated Energy Requirement > or equal to 5 days Interpretation of Weight Loss (severe) >7.5% in 3 months #1 Nutrition Diagnosis Malnutrition Diagnosis Progress(for reassessment Continues documentation) Is patient on ventilator? No Is Patient Ambulatory and/or Out of Bed Yes REE-([place]-St. Jeor-ambulatory/OOB) [ [id number] [id number]] Calculation Used for Recommendations Farrah Causey Additional Notes Protein needs are 108-130g (1. 2-1.5g/kg) Fluid needs are 1ml/kcal Nutrition Intervention Change Diet Order: D/c cardiac Add Supplement/Snack (indicate name/kcal Glucerna strawberry BID /protein ) Provides kCal: 440 Provides Protein (gm) 20 Goal #1 Meet at least 80% of kcal and protein needs Goal #2 Wt maintenance Anticipated Discharge Needs: Cardiac/consistent CHO with ONS as needed Follow-Up By: 10/10/20 Additional Comments Follow for intakes and ONS tolerance
[2020-10-09] MEDS: guaiFENesin ER 600 MG TAB PO SCH (10:13)
[2020-10-09] MEDS: FERROUS SULFATE 325 MG TAB PO SCH (10:13)
[2020-10-09] MEDS: NICOTINE 14 MG/24 HR PATCH TD SCH (10:13)
--- NOTE | 2020-10-09 10:34 | Event Note ---
Date: 10/09/20 [employer] - her age, the fact that her 10 cm left adnexal cyst is complex and is causing a hydronephrosis (per imaging) are all concerning factors for possible malignancy. As a result, it would serve in the pt's best interest to be referred (once medically stabilized) to see ASSISTANT PROFESSOR OF DRAMA Oncology for evaluation and surgery. CA 125 result is still pending. Case d/w pt and all questions answered. Once pt is discharged, she can f/u in our office (pt given a card with office number). In our office, we can arrange for the ASSISTANT PROFESSOR OF DRAMA ONC referral. Case also d/w Dr. Perez and he agrees with the plan.
--- NOTE | 2020-10-09 15:22 | Discharge Summary ---
Providers - Providers Date of Admission: 10/06/20 02:13 Date of discharge: 10/09/20 Attending physician: MAY SUTHERLAND MD 10/06/20 02:16 Consult to Dietitian/Nutrition [CONS] Routine Physician Instructions: Reason For Exam: Reason for Consult: Malnutrition 10/06/20 02:17 Consult to Physician [CONS] Routine Comment: Consulting Provider: KELLY PARKER Physician Instructions: Reason For Exam: ??GIB 10/06/20 02:50 Physical Therapy Evaluation and Treat [CONS] Routine Comment: Reason For Exam: amb c cane, recurrent falls 10/06/20 02:51 Occupational Therapy Evaluate and Treat [CONS] Routine Comment: Reason For Exam: amb c cane, recurrent falls 10/06/20 02:59 Consult to Dietitian/Nutrition [CONS] Routine Physician Instructions: Malnutrition Reason For Exam: Reason for Consult: Malnutrition 10/08/20 08:30 Consult to Physician [CONS] Routine Comment: Consulting Provider: FERDINAND STEWARD Physician Instructions: Reason For Exam: ovarian mass Primary care physician: AUTO HAULAWAY DRIVER Hospitalization Reason for admission: Ovarian mass, anemia, hematochesia Condition: Stable Hospital course: History of present illness: 60-year-old -Polish female with history of anemia, hypertension, diabetes, peripheral neuropathy, COPD, HLD, arthritis, and chronic debility who presents to [facility] ED with complaints of intermittent diarrhea x2 months, intermittent bright red blood per rectum x4 to 5 days. Patient reports intermittent since undergoing colonoscopy 2 months ago at [facility]. She has been taking OTC Imodium and Pepto-Bismol with minimal relief. Describes her stool as formed stools on some days, and loose watery stool on other days. Endorses history of anemia and was started on oral iron supplement approximately 1 week ago. Endorses dark-colored stool since starting iron supplement. However, she complains of bright red blood per rectum intermittently over the past 4 to 5 days. Patient states when she sits on the commode and goes to wipe there is bright red blood on the toilet tissue. Endorses chronic smoker's cough with clear/white sputum production, unintentional weight loss of 60 pounds over the past 6 months, and decreased oral intake and appetite. Additionally patient complains of left upper quadrant 6/10 cramping pain. The pain is intermittent, waxes and wanes, and she has not taken any medication for relief. Denies nausea, fever, chills, generalized weakness, headache, chest pain, palpitations, shortness of breath, PND, orthopnea, hematuria, or recent sick contacts. Hospital course GI bleed/hematochezia Hyponatremia Acute blood loss anemia Severe protein calorie malnutrition Ovarian cystic mass Diabetes mellitus type 2 Tobacco abuse 10/06. Continue IV fluid hydration and follow-up BMP. Transfuse for hemoglobin less than 7. Follow-up CBC. Continue IV Protonix twice daily. Await GI consultation. 10/07. GI plans to treat conservatively. Check C. Diff for evaluation of diarrhea. H&H is stable. Transfuse for hemoglobin less than 7. Continue Protonix. MEDICATION RECONCILIATION TECHNICIAN consult for ovarian mass. 10/08. Patient with no further episodes of hematochezia since admission. H/H stable. Colonoscopy per pt 2 months ago with large polyp removed. The patient will need f/u with primary gi after discharge. C. difficile pending. MEDICATION RECONCILIATION TECHNICIAN evaluation for left lower quadrant abdominal pain and CT revealing left adnexal mass concerning for ovarian neoplasm. 10/09; no hematochezia since admission. H&H stable. GI signed off. Patient has left-sided adenexial mass. Was evaluated by SALES REPRESENTATIVE UNIFORMS and will follow the recommendations. Discussed with Dr Olvera and he recommends to discharge the patient and follow with him in the office, for MEDICATION RECONCILIATION TECHNICIAN oncologist referral. I have explained the management plans with the patient and she was in agreement with the plan of care. I make an appointment with dr Olvera in 1 week. Disposition: - TO HOME OR SELFCARE Final Discharge Diagnosis (Prints w/discharge instructions): Ovarian mass, suspected malignancy. GI bleed. Anemia Time spent for discharge: 35 minutes - Discharge Diagnoses (1) Diarrhea Status: Acute (2) Ovarian mass, left Status: Acute (3) Rectal bleeding Status: Acute Core Measure Documentation - Palliative Care Palliative Care/ Comfort Measures: Not Applicable - Core Measures Any of the following diagnoses?: none Exam - Physical Exam Narrative exam: Not in cardiopulmonary distress. The patient appeared well nourished and normally developed. Vital signs as documented. Head exam is unremarkable. No scleral icterus . Neck is without jugular venous distension, thyromegaly, or carotid bruits. Lungs are clear to auscultation. Cardiac exam reveals regular rate and Rhythm. Abdominal exam reveals normal bowel sounds, nontender, no organomegaly. Extremities are nonedematous and both femoral and pedal pulses are normal. JUNIOR ORACLE DBA: Alert and oriented 3. No focal weakness. - Constitutional Vitals: Temp Pulse Resp BP Pulse Ox 98.1 F 83 18 114/75 99 10/09/20 07:14 10/09/20 07:14 10/09/20 07:14 10/09/20 07:14 10/09/20 07:14 Plan Activity: no restrictions Weight Bearing Status: Full Weight Bearing Diet: regular Follow up with: PRIMARY MD VINCENT [Primary Care Provider] - 3-5 Days MARQUEZ OLVERA MD [Staff Physician] - 7 Days (For Gynoncologist referral) Forms: Accompanied Note
[2020-10-09] MEDS ORDERED: POTASSIUM CHLORIDE ER 20 MEQ TAB PO ONE (16:00)
== END 2020-10-09 17:44 | disposition home or self-care (01) ==
LOC: ED 18:25 → 4A 10-06 02:13
PROVIDERS: ADMIT Hospitalist; ATTEND Internal Medicine
DX: K92.2 Gastrointestinal hemorrhage, unspecified (principal); R00.0 Tachycardia, unspecified; R19.7 Diarrhea, unspecified; N83.8 Other noninflammatory disorders of ovary, fallopian tube and broad ligament; E86.0 Dehydration; E87.1 Hypo-osmolality and hyponatremia; D64.9 Anemia, unspecified; E46 Unspecified protein-calorie malnutrition; E11.9 Type 2 diabetes mellitus without complications; D48.9 Neoplasm of uncertain behavior, unspecified; R19.05 Periumbilic swelling, mass or lump; N83.202 Unspecified ovarian cyst, left side; J44.9 Chronic obstructive pulmonary disease, unspecified; M19.90 Unspecified osteoarthritis, unspecified site; F17.210 Nicotine dependence, cigarettes, uncomplicated; Z90.710 Acquired absence of both cervix and uterus; Z68.29 Body mass index [BMI] 29.0-29.9, adult; Z98.51 Tubal ligation status; Z79.4 Long term (current) use of insulin
CPT/HCPCS: 36415; 74177; 80048; 80053; 80061; 82106; 82962; 83036; 85014; 85018; 85025; 85610; 85730; 86304; 96361; 96372; 96374; 96375; 96376; 97161; 97165; 97535; 99285; A6250; C9113; G0378; J0500; J1200; J2405; J7030; Q9967; 85007; J1815

== ENCOUNTER 2020-11-26 10:37 | Emergency (ER) | payer MEDICARE ==
[2020-11-26 12:25] VITALS: BP 123/80
--- NOTE | 2020-11-26 13:49 | Emergency Department Report ---
Chief Complaint: Extremity Problem,Nontraumatic Stated Complaint: PAIN IN HANDS, FEET, LEFT SIDE PAIN Time Seen by Provider: 11/26/20 13:23 - HPI History of Present Illness: 60-year-old -Maldivian female with a history of hyperlipidemia arthritis peripheral neuropathy diabetes and hypertension COPD presents to the emergency room complaining of extremity pains with history of neuropathy. Patient is currently on gabapentin and pain medication. Patient's primary care provider is at [facility]. Patient has no injuries. Patient does smoke cigarettes. - Exam Vital Signs: Vital Signs 11/26/20 12:23 Temperature 98 F Pulse Rate 82 Respiratory 18 Rate Blood Pressure 123/80 [Right] O2 Sat by Pulse 97 Oximetry Physical Exam: General: Awake, appropriately interactive, no acute distress. Neck: Supple. Full range of motion intact. Pulmonary: No respiratory distress. Patient is speaking normally without use of accessory muscles. Skin: No apparent rashes or lesions. Neurological: No facial asymmetry. Speech is clear. Follows commands. Patient is alert and oriented. Musculoskeletal: Full range of motion, Able to bear weight and ambulate with with a cane. Psych: Cooperative. Upset agitated MSE screening note: Focused history and physical exam performed. Due to findings the following was ordered: 60-year-old -Maldivian female with a history of hyperlipidemia arthritis peripheral neuropathy diabetes and hypertension COPD presents to the emergency room complaining of extremity pains with history of neuropathy. Patient is currently on gabapentin and pain medication. Patient's primary care provider is at [facility]. Patient has no injuries. Patient does smoke cigarettes. Patient does ambulate with a cane. Patient was upset that she was placed in the chair felt that her insurance should pay for bed. Patient was offered a bench and refused. Patient got upset stating that she wanted to get back into the ER wheelchair and to leave this [facility]. This provider assisted patient back into the wheelchair wheeled her to her vehicle assisted her into her car. Apologized to patient evaluated. Patient declined and states she is going to [facility]. ED Disposition for MSE Disposition: DC-01 TO HOME OR SELFCARE Is pt being admited?: No Does the pt Need Aspirin: No Condition: Stable Referrals: [facility] [Outside] - 3-5 Days
== END 2020-11-26 13:30 | disposition home or self-care (01) ==
LOC: ED 10:37
DX: M79.642 Pain in left hand (principal); M79.672 Pain in left foot; I10 Essential (primary) hypertension; E11.42 Type 2 diabetes mellitus with diabetic polyneuropathy; J44.9 Chronic obstructive pulmonary disease, unspecified; F17.210 Nicotine dependence, cigarettes, uncomplicated; M19.90 Unspecified osteoarthritis, unspecified site
CPT/HCPCS: 99282